=== PATIENT | female | born 1970 | race Caucasian/White ===

== ENCOUNTER 2017-08-06 16:19 | Observation (INO) ==
[2017-08-06] MEDS ORDERED: Ondansetron ODT 4 MG TAB.RAPDIS SL ONE (17:40)
--- NOTE | 2017-08-06 17:41 | Emergency Department Note ---
Disposition Clinical Impression: Pyelonephritis Nausea & vomiting Qualifiers: Vomiting type: unspecified Vomiting Intractability: intractable Qualified Code( s): R11.2 - Nausea with vomiting, unspecified Disposition: Admitted As Inpatient Condition: Fair General Adult HPI - General Chief complaint: ED Nausea/Vomiting/Diarrhea Stated complaint: head/neck pain worse" Time Seen by Provider: 08/06/17 16:36 Source: patient Limitations: no limitations Nursing Notes Reviewed: Yes Vital Signs Reviewed: Yes - History of Present Illness HPI Narrative: 46-year-old female presents emergency department with concern for one-day history of fever, nausea, vomiting, left-sided flank pain, left lower quadrant abdominal pain with decreased urinary frequency. Patient states she has history of pyelonephritis. 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 Patient states that she is no longer having a headache. Patient denies any recent trauma. She localizes the tenderness to the paraspinal region on the left side. Patient denies any bowel or bladder incontinence, saddle anesthesia, IV drug abuse. Patient states that she has not been able to tolerate oral intake with her nausea vomiting. She stated she tried Zofran sublingual which normally helps her, but this did not help today. Pain Scale: 9 - Related Data Home Medications Medication Instructions Recorded Confirmed Ondansetron ODT [Zofran ODT] 8 mg SL Q6H PRN 10/15/14 08/29/15 Zolpidem Tartrate [Ambien] 10 mg PO DAILY PRN 10/15/14 08/29/15 Percocet 10-325 mg Tablet 09/26/15 Previous Rx's Medication Instructions Recorded Oxycodone HCl/Acetaminophen 1 each PO Q8HR PRN #6 tablet 10/21/15 [Percocet 5-325 mg Tablet] Ondansetron [Zofran ODT] 8 mg SL Q4HR PRN #20 tab 01/30/17 Ondansetron [Zofran ODT] 8 mg SL QID #10 tab.rapdis 02/13/17 Ondansetron ODT [Zofran ODT] 4 mg SL Q8HR PRN #12 tab.rapdis 08/05/17 Allergies Allergy/AdvReac Type Severity Reaction Status Date / Time diphenhydramine Allergy Hives Verified 08/05/17 18:48 [From Benadryl] ketorolac [From Toradol] Allergy Anaphylaxis Verified 08/05/17 18:48 metoclopramide [From Reglan] Allergy Dizziness Verified 08/05/17 18:48 prochlorperazine Allergy See Verified 08/05/17 18:48 [From Compazine] Comments Sulfa (Sulfonamide Allergy Vomiting Verified 08/05/17 18:48 Antibiotics) divalproex sodium AdvReac Anxiety Verified 08/05/17 18:48 [From Depakote] haloperidol [From Haldol] AdvReac Anxiety Verified 08/05/17 18:48 ketamine AdvReac Headache Verified 08/05/17 18:48 All systems ED: reviewed and negative except as stated. Review of Systems: As Per HPI Constitutional: Reports: fever Cardiovascular: Denies: chest pain Respiratory: Denies: cough, dyspnea Gastrointestinal: Reports: abdominal pain, nausea, vomiting, constipation Genitourinary: Reports: frequency (Decreased). 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 Absent: tenderness, meningismus - Chest Chest inspection: Present: normal inspection, symmetric chest wall rise - Respiratory Respiratory exam: Present: normal lung sounds bilaterally. Absent: respiratory distress - Cardiovascular Cardiovascular exam: Present: regular rate, normal rhythm, normal heart sounds - Abdominal Exam Abdominal exam: Present: soft, tenderness. Absent: guarding, rebound Abdominal tenderness: Present: LLQ, moderate - Back Exam Back exam: Present: full ROM, CVA tenderness (L), paraspinal tenderness (On the left). Absent: CVA tenderness (R) - Neurological Exam Neurological exam: Present: alert, oriented X3, CN II-XII intact - Psychiatric Psychiatric exam: Present: normal affect, normal mood - Skin Skin exam: Present: warm, dry, intact, normal color. Absent: rash Course Vital Signs Temperature 98.6 F 08/06/17 16:31 Pulse Rate 82 08/06/17 16:31 Respiratory Rate 18 08/06/17 16:31 Blood Pressure 142/94 08/06/17 16:31 O2 Sat by Pulse Oximetry 100 08/06/17 16:31 Temperature 98.6 F 08/06/17 16:31 Pulse Rate 67 08/06/17 18:16 Respiratory Rate 20 08/06/17 21:26 Blood Pressure 134/89 08/06/17 21:26 O2 Sat by Pulse Oximetry 100 08/06/17 18:16 Oxygen Delivery Oxygen Delivery Room Air Medical Decision Making - MDM Narrative Medical decision making narrative: 46-year-old female presents emergency department with concern for left CVA tenderness, left lower quadrant abdominal pain, with nausea vomiting, reported fever, and decreased urinary frequency. We will obtain CT scan of abdomen and pelvis to rule out obstructive stone as patient has had history of this in the past. CT scan of abdomen and pelvis does not reveal any acute abnormality. We obtain a urinalysis which revealed positive nitrites, mild leukocyte esterase. The symptoms of CVA tenderness, left lower quadrant rebound tenderness on physical exam with the urinalysis findings, suspect a pyelonephritis. Patient also had a leukocytosis of 15.7. Patient had normal renal function. Patient was unable to tolerate oral intake here in the emergency department after he gave sublingual Zofran. She vomited multiple times. We placed IV and gave patient a liter of fluids as well as IV Zofran. Patient was also given medication for pain as well. We also administered 2 g Rocephin IV. Discussed admission with the patient at bedside and she agreed with plan. Patient was admitted to the hospitalist. Patient hemodynamically stable and not in any acute distress at time of admission to the hospital. Patient reported that the IV Zofran helped with her nausea. Vital Signs Temperature 98.6 F 08/06/17 16:31 Pulse Rate 82 08/06/17 16:31 Respiratory Rate 18 08/06/17 16:31 Blood Pressure 142/94 08/06/17 16:31 O2 Sat by Pulse Oximetry 100 08/06/17 16:31 Temperature 98.6 F 08/06/17 16:31 Pulse Rate 67 08/06/17 18:16 Respiratory Rate 20 08/06/17 21:26 Blood Pressure 134/89 08/06/17 21:26 O2 Sat by Pulse Oximetry 100 08/06/17 18:16 Oxygen Delivery Oxygen Delivery Room Air Abdomen/Pelvis CT 08/06/17 17:39 IMPRESSION: 1. No acute abnormality in the abdomen/pelvis. 2. Small pelvic free fluid, which is most likely physiologic. D/ / Rudy Charlton MD / Rudy Charlton MD Interpreting Provider: Rudy Charlton MD - Lab Data Result diagrams: 08/06/17 18:00 08/06/17 18:00 Lab Results 08/06/17 08/06/17 08/06/17 Range/Units 16:05 18:00 18:00 WBC 15.7 H D (4.3-11.1) K/mcL RBC 4.97 (3.82-4.97) M/mcL Hgb 15.4 D (11.5-15.4) g/dL Hct 44.0 (35.3-44.9) % MCV 88.5 (83.0-100.0) fL MCH 31.0 (28.0-33.3) pg MCHC 35.0 (31.6-35.5) g/dL RDW 12.4 (11.5-14.5) % Plt Count 353 (140-400) K/mcL MPV 9.3 L (9.4-12.4) fL Immature Gran % 0.4 (0-4) % Seg Neutrophils % 81.0 % Lymphocytes % 12.2 % Monocytes % 6.3 % Eosinophils % 0.0 % Basophils % 0.1 % Neutrophils # 12.7 H (1.6-8.9) K/mcL Lymphocytes # 1.9 (0.6-4.6) K/mcL Monocytes # 1.0 (0.0-1.3) K/mcL Eosinophils # 0.0 (0.0-0.6) K/mcL Basophils # 0.0 (0.0-0.2) K/mcL Sodium 138 (136-145) mEq/L Potassium 3.6 (3.5-5.1) mEq/L Chloride 105 (98-107) mEq/L Carbon Dioxide 22 L (23-29) mEq/L BUN 14 (6-20) mg/dL Creatinine 0.72 (0.60-1.20) mg/dL Est GFR ( Amer) > 60 (> 60) Est GFR (Non-Af Amer) > 60 (> 60) BUN/Creatinine Ratio 19 (6-26) Glucose 90 (70-105) mg/dL Calculated Osmolality 286 (280-300) Calcium 9.9 (8.6-10.3) mg/dL Total Bilirubin 0.7 (0.3-1.0) mg/dL AST 10 L (13-39) Units/L ALT 10 (7-52) Units/L Alkaline Phosphatase 76 (34-104) Units/L Serum Total Protein 7.4 (6.4-8.9) g/dL Albumin 4.8 (3.5-5.7) g/dL Globulin 2.6 (2.4-3.5) g/dL Albumin/Globulin Ratio 1.8 (1.1-2.2) Urine Color Yellow (Yellow) Urine Clarity Cloudy A (Clear) Urine pH 6.0 (5.0-8.0) pH Units Ur Specific [place] 1.015 (1.010-1.025) Urine Protein Negative (Neg-Trace) mg/dL Urine Glucose (UA) Normal (Normal) mg/dL Urine Ketones Negative (Negative) mg/dL Urine Blood Negative (Negative) Urine Nitrite Positive A (Negative) Urine Bilirubin Negative (Negative) Urine Urobilinogen Normal (Normal) mg/dL Ur Leukocyte Esterase Small H (Negative) Urine Microscopic RBC 0-3 (0-3) per hpf Urine Microscopic WBC 15-30 H (0-3) per hpf Ur Squamous Epith Cells Many H (None-Few) per lpf Urine Bacteria Many H (None-Few) per hpf Hyaline Casts None Seen (None-Few) per lpf Ur Culture Indicated? NO. A (NO)
[2017-08-06 18:11] LABS: Basophils % 0.1 %; Immature Granulocytes % 0.4 % (0-4); Lymphocytes # 1.9 K/mcL (0.6-4.6); Lymphocytes % 12.2 %; Mean Corpuscular Volume 88.5 fL (83.0-100.0); Mean Platelet Volume 9.3 fL (9.4-12.4); Monocytes % 6.3 %; Neutrophils # 12.7 K/mcL (1.6-8.9); Platelet Count 353 K/mcL (140-400); Red Blood Count 4.97 M/mcL (3.82-4.97); Red Cell Distribution Width 12.4 % (11.5-14.5)
[2017-08-06 18:16] LABS: Bilirubin,Urine Negative (Negative); Blood,Urine Negative (Negative); Clarity,Urine Cloudy (Clear); Color,Urine Yellow (Yellow); Glucose,Urine (UA) Normal (Normal); Ketones,Urine Negative (Negative); Leukocyte Esterase,Urine Small (Negative); Nitrite,Urine Positive (Negative); Protein,Urine Negative (Neg-Trace); Specific Gravity,Urine 1.015 (1.010-1.025); Urobilinogen,Urine Normal (Normal)
[2017-08-06 18:18] LABS: Bacteria,Urine Many per hpf (None-Few); Hyaline Casts,Urine None Seen per lpf (None-Few); RBC,Urine 0-3 per hpf (0-3); Squamous Epithelial Cell,Urine Many per lpf (None-Few); WBC,Urine 15-30 per hpf (0-3)
[2017-08-06 18:30] LABS: Alanine Aminotransferase 10 Units/L (7-52); Albumin 4.8 g/dL (3.5-5.7); Albumin/Globulin Ratio 1.8 (1.1-2.2); Alkaline Phosphatase 76 Units/L (34-104); Aspartate Amino Transferase 10 Units/L (13-39); BUN/Creatinine Ratio 19 (6-26); Bilirubin,Total 0.7 mg/dL (0.3-1.0); Blood Urea Nitrogen 14 mg/dL (6-20); Calcium 9.9 mg/dL (8.6-10.3); Carbon Dioxide 22 mEq/L (23-29); Chloride 105 mEq/L (98-107); Globulin 2.6 g/dL (2.4-3.5); Glucose 90 mg/dL (70-105); Osmolality,Calculated 286 (280-300); Potassium 3.6 mEq/L (3.5-5.1); Sodium 138 mEq/L (136-145); Total Protein 7.4 g/dL (6.4-8.9); eGFR For African Americans > 60 (> 60); eGFR For Non-African Americans > 60 (> 60)
[2017-08-06 18:54] LABS: Hemoglobin 15.4 g/dL (11.5-15.4)
[2017-08-06] MEDS ORDERED: cefTRIAXone 2,000 MG in Water for inj. (sterile) 20 ML 20 ML IVP ONE (19:09)
[2017-08-06] MEDS ORDERED: 0.9 % Sodium Chloride 1,000 ML IVC ONE (19:15)
--- NOTE | 2017-08-06 19:39 | Emergency Department Note ---
Disposition Clinical Impression: Pyelonephritis, Nausea & vomiting Disposition: Admitted As Inpatient Condition: Fair General Adult HPI - General Chief complaint: ED Nausea/Vomiting/Diarrhea Stated complaint: head/neck pain worse" Time Seen by Provider: 08/06/17 16:36 Source: patient Limitations: no limitations - History of Present Illness Pain Scale: 6 - Related Data Home Medications Medication Instructions Recorded Confirmed Ondansetron ODT [Zofran ODT] 8 mg SL Q6H PRN 10/15/14 08/29/15 Zolpidem Tartrate [Ambien] 10 mg PO DAILY PRN 10/15/14 08/06/17 Percocet 10-325 mg Tablet 09/26/15 Previous Rx's Medication Instructions Recorded Oxycodone HCl/Acetaminophen 1 each PO Q8HR PRN #6 tablet 10/21/15 [Percocet 5-325 mg Tablet] Ondansetron [Zofran ODT] 8 mg SL Q4HR PRN #20 tab 01/30/17 Ondansetron [Zofran ODT] 8 mg SL QID #10 tab.rapdis 02/13/17 Ondansetron ODT [Zofran ODT] 4 mg SL Q8HR PRN #12 tab.rapdis 08/05/17 Allergies Allergy/AdvReac Type Severity Reaction Status Date / Time diphenhydramine Allergy Hives Verified 08/05/17 18:48 [From Benadryl] ketorolac [From Toradol] Allergy Anaphylaxis Verified 08/05/17 18:48 metoclopramide [From Reglan] Allergy Dizziness Verified 08/05/17 18:48 prochlorperazine Allergy See Verified 08/05/17 18:48 [From Compazine] Comments Sulfa (Sulfonamide Allergy Vomiting Verified 08/05/17 18:48 Antibiotics) divalproex sodium AdvReac Anxiety Verified 08/05/17 18:48 [From Depakote] haloperidol [From Haldol] AdvReac Anxiety Verified 08/05/17 18:48 ketamine AdvReac Headache Verified 08/05/17 18:48 Past Medical History - Past Medical History Medical history: Reports: hypertension, thyroid disease, migraine, kidney stones , DVT Surgical history: Reports: appendectomy, hysterectomy, other Psychiatric history: Reports: no psych history 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, bilateral tubal ligation - Social History Smoking Status: Never smoker Smokeless Tobacco Status: No Alcohol use: Reports: none Drug use: Reports: none Physical Exam - General Limitations: no limitations General appearance: alert Course Vital Signs Temperature 98.6 F 08/06/17 16:31 Pulse Rate 82 08/06/17 16:31 Respiratory Rate 18 08/06/17 16:31 Blood Pressure 142/94 08/06/17 16:31 O2 Sat by Pulse Oximetry 100 08/06/17 16:31 Temperature 98.6 F 08/06/17 16:31 Pulse Rate 67 08/06/17 18:16 Respiratory Rate 20 08/06/17 21:26 Blood Pressure 134/89 08/06/17 21:26 O2 Sat by Pulse Oximetry 100 08/06/17 18:16 Oxygen Delivery Oxygen Delivery Room Air Medical Decision Making - Lab Data Result diagrams: 08/06/17 18:00 08/06/17 18:00 Lab Results 08/06/17 08/06/17 08/06/17 Range/Units 16:05 18:00 18:00 WBC 15.7 H D (4.3-11.1) K/mcL RBC 4.97 (3.82-4.97) M/mcL Hgb 15.4 D (11.5-15.4) g/dL Hct 44.0 (35.3-44.9) % MCV 88.5 (83.0-100.0) fL MCH 31.0 (28.0-33.3) pg MCHC 35.0 (31.6-35.5) g/dL RDW 12.4 (11.5-14.5) % Plt Count 353 (140-400) K/mcL MPV 9.3 L (9.4-12.4) fL Immature Gran % 0.4 (0-4) % Seg Neutrophils % 81.0 % Lymphocytes % 12.2 % Monocytes % 6.3 % Eosinophils % 0.0 % Basophils % 0.1 % Neutrophils # 12.7 H (1.6-8.9) K/mcL Lymphocytes # 1.9 (0.6-4.6) K/mcL Monocytes # 1.0 (0.0-1.3) K/mcL Eosinophils # 0.0 (0.0-0.6) K/mcL Basophils # 0.0 (0.0-0.2) K/mcL Sodium 138 (136-145) mEq/L Potassium 3.6 (3.5-5.1) mEq/L Chloride 105 (98-107) mEq/L Carbon Dioxide 22 L (23-29) mEq/L BUN 14 (6-20) mg/dL Creatinine 0.72 (0.60-1.20) mg/dL Est GFR ( Amer) > 60 (> 60) Est GFR (Non-Af Amer) > 60 (> 60) BUN/Creatinine Ratio 19 (6-26) Glucose 90 (70-105) mg/dL Calculated Osmolality 286 (280-300) Calcium 9.9 (8.6-10.3) mg/dL Total Bilirubin 0.7 (0.3-1.0) mg/dL AST 10 L (13-39) Units/L ALT 10 (7-52) Units/L Alkaline Phosphatase 76 (34-104) Units/L Serum Total Protein 7.4 (6.4-8.9) g/dL Albumin 4.8 (3.5-5.7) g/dL Globulin 2.6 (2.4-3.5) g/dL Albumin/Globulin Ratio 1.8 (1.1-2.2) Urine Color Yellow (Yellow) Urine Clarity Cloudy A (Clear) Urine pH 6.0 (5.0-8.0) pH Units Ur Specific [place] 1.015 (1.010-1.025) Urine Protein Negative (Neg-Trace) mg/dL Urine Glucose (UA) Normal (Normal) mg/dL Urine Ketones Negative (Negative) mg/dL Urine Blood Negative (Negative) Urine Nitrite Positive A (Negative) Urine Bilirubin Negative (Negative) Urine Urobilinogen Normal (Normal) mg/dL Ur Leukocyte Esterase Small H (Negative) Urine Microscopic RBC 0-3 (0-3) per hpf Urine Microscopic WBC 15-30 H (0-3) per hpf Ur Squamous Epith Cells Many H (None-Few) per lpf Urine Bacteria Many H (None-Few) per hpf Hyaline Casts None Seen (None-Few) per lpf Ur Culture Indicated? NO. A (NO) Attestation Statement - Attestation Attestation: I examined this patient and my medical decision-making was reviewed with the Resident Physician, Dr. Canales. I agree with the documented findings, disposition and treatment plan as described except to the extent set forth below. Patient is a 46-year-old white female who I personally evaluated and cared for last night in the emergency department for migraine headache. She returns tonight with complaints of subjective fevers and chills, urinary urgency and frequency, suprapubic abdominal pain as well as right flank pain with a prior history of kidney stones and ongoing nausea and vomiting. Patient states her headache has not returns stopping complaining of any head or neck pain we did a CT can of her head and shunt night's was all unremarkable. Patient concerned that she has had prior UTIs in the past as well as kidney stones and came in for evaluation. She is status post hysterectomy as well as appendectomy. Patient's hemodynamically stable and in no acute distress on arrival. I agree with patient's physical exam findings as documented. We attempted sublingual medications which patient had difficulty tolerating ODT Zofran. We will go ahead and proceed with a line fluids and medications IV. Laboratory evaluation shows a leukocytosis with left shift and urinalysis consistent with urinary tract infection. CT scan was negative for any Acute kidney stones or ureterolithiasis at this time and no obvious [place]. Symptoms concerning for ascending UTI versus acute early acute [place] and patient able tolerate by mouth at this time. Patient will be admitted to the hospitalist service for continued evaluation and management.
[2017-08-06] MEDS ORDERED: Ondansetron 4 MG/2 ML VIAL IVP ONE (19:45)
[2017-08-06] MEDS ORDERED: Ondansetron 4 MG/2 ML VIAL ONE (20:03)
[2017-08-06] MEDS ORDERED: Naloxone 0.4 MG/ML INJ IVP PRN (20:30)
[2017-08-06] MEDS ORDERED: Acetaminophen 325 MG TABLET PO PRN (20:30)
[2017-08-06] MEDS ORDERED: *HR* OxyCODONE/APAP 5/325 TABLET PO ONE (20:32)
--- NOTE | 2017-08-06 20:38 | Internal Med History&Physical ---
Date of Encounter: 08/06/17 Time of Encounter: 20:33 Internal Medicine - H&P: HPI Chief complaint: Urinary symptoms Admitted From: Emergency Dept Plans for Post Hospital Care: Home History of present illness: Ms. 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 The patient was evaluated in the ED yesterday with migraine headache and was treated and was discharged with no issues. She comes back today complaining of urinary symptoms including suprapubic and right flank pain as well as urinary urgency and frequency with associated fevers and chills. Fever as high as 101.5. This started yesterday. She has been nauseated and has been vomiting as well. In the ED she was noted to have leukocytosis as well as a UA that indicative for UTI. She was given ceftriaxone in the ED as well as antiemetics. She was tried on oral antiemetics however she vomited. This is the reason she skinned admitted that she could not tolerate by mouth. Otherwise the patient was hemodynamically stable in the ED. She was afebrile. A CT abdomen and pelvis was done which showed no acute abnormalities. She says she is continues to have a headache however this improved compared to yesterday. Denies any blurry vision, chest pain, shortness of breath, diarrhea, constipation, or neurological symptoms. Past Med Surg Social Fam HX - Past Medical History Medical history: hypertension, thyroid disease, migraine, kidney stones, DVT Additional medical history: spinal menengitis Psychiatric history: no psych history - Past Surgical History Surgical History: appendectomy, hysterectomy, other Additional surgical history: WINDOWS SOFTWARE DEVELOPER Shunt, left facial reconstruction - Social History Smoking Status: Never smoker Smokeless Tobacco Status: No Alcohol use: none Drug use: none Internal Medicine - H&P: Meds Zolpidem Tartrate [Ambien] 10 mg PO DAILY PRN 10/15/14 [History] Percocet 10-325 mg Tablet 1 tab PO Q6HR MDD 4 09/26/15 [History] Ondansetron [Zofran ODT] 8 mg SL TID 08/06/17 [History] 3 Allergy/AdvReac Type Severity Reaction Status Date / Time diphenhydramine Allergy Hives Verified 08/05/17 18:48 [From Benadryl] ketorolac [From Toradol] Allergy Anaphylaxis Verified 08/05/17 18:48 metoclopramide [From Reglan] Allergy Dizziness Verified 08/05/17 18:48 prochlorperazine Allergy See Verified 08/05/17 18:48 [From Compazine] Comments Sulfa (Sulfonamide Allergy Vomiting Verified 08/05/17 18:48 Antibiotics) divalproex sodium AdvReac Anxiety Verified 08/05/17 18:48 [From Depakote] haloperidol [From Haldol] AdvReac Anxiety Verified 08/05/17 18:48 ketamine AdvReac Headache Verified 08/05/17 18:48 All Systems PM: A 10-system review of systems was performed and is negative for pertinent findings except as documented above in the HPI. Review of systems: All systems reviewed are negative except as mentioned above - Constitutional Vitals: Temp Pulse Resp BP Pulse Ox 98.6 F 67 18 134/89 100 08/06/17 16:31 08/06/17 18:16 08/06/17 16:31 08/06/17 18:16 08/06/17 18:16 Exam: GEN: NAD HEENT: AT, NC, No cyanosis, oral mucosa is moist, No JVD Lymphatics: No lymphadenoapthy Eyes: Extrocular muscles intact, anicteric CVS:RRR. S1, S2, No m/r/g RESP: CTAB ABD: Soft, suprapubic tenderness., ND, +BS EXT: No edema, No rashes, 2+ DP NEURO: Nonfocal, CN II-XII intact, No focal motor or sensory deficits Psych: Cooperative, Not anxious or depressed Internal Med - H&P Results - Labs CBC & Chem 7: 08/06/17 18:00 08/06/17 18:00 - Assessment and plan (1) UTI (urinary tract infection) Current Visit: Yes Status: Acute Assessment and plan: We will place patient on ceftriaxone and IV fluids. Follow up on cultures. Qualifiers: Urinary tract infection type: site unspecified Hematuria presence: without hematuria Qualified Code(s): N39.0 - Urinary tract infection, site not specified (2) Nausea and vomiting Current Visit: Yes Status: Acute Assessment and plan: Likely secondary to the UTI. We will treat conservatively with IV fluids and antiemetics. Diet as tolerated. Qualifiers: Vomiting type: unspecified Vomiting Intractability: intractable Qualified Code(s): R11.2 - Nausea with vomiting, unspecified (3) DVT prophylaxis Current Visit: Yes Status: Acute Assessment and plan: Heparin subcutaneous - Time Spent With Patient Total time spent is greater than 50% in coordination of care (as documented) at patient's floor/unit and/or counseling patient:
[2017-08-06] MEDS ORDERED: Ketorolac 30 MG/ML VIAL IVP PRN (21:50)
[2017-08-06] MEDS ORDERED: *HR* Heparin 5,000 UNIT/ML VIAL SQ SCH (22:00)
[2017-08-06] MEDS: *HR* Heparin 5,000 UNIT/ML VIAL SQ SCH (22:30)
[2017-08-06] MEDS: 0.9 % Sodium Chloride 1,000 ML IVC SCH (22:42)
[2017-08-07] MEDS: *HR* OxyCODONE/APAP 10/325 TABLET PO PRN ×4 (02:55→21:19)
[2017-08-07] MEDS: Ondansetron 4 MG/2 ML VIAL IVP PRN ×4 (02:55→21:24)
[2017-08-07] MEDS: 0.9 % Sodium Chloride 1,000 ML IVC SCH ×3 (06:17→22:47)
[2017-08-07] MEDS: *HR* Heparin 5,000 UNIT/ML VIAL SQ SCH ×3 (06:17→21:26)
[2017-08-07 07:04] LABS: Basophils % 0.3 %; Eosinophils # 0.1 K/mcL (0.0-0.6); Eosinophils % 0.6 %; Hematocrit 37.6 % (35.3-44.9); Immature Granulocytes % 0.3 % (0-4); Lymphocytes # 2.9 K/mcL (0.6-4.6); Lymphocytes % 29.3 %; Mean Corpuscular HGB Conc 34.3 g/dL (31.6-35.5); Mean Corpuscular Hemoglobin 30.1 pg (28.0-33.3); Mean Corpuscular Volume 87.6 fL (83.0-100.0); Mean Platelet Volume 9.4 fL (9.4-12.4); Monocytes % 10.1 %; Neutrophils # 5.9 K/mcL (1.6-8.9); Platelet Count 286 K/mcL (140-400); Red Blood Count 4.29 M/mcL (3.82-4.97); Red Cell Distribution Width 12.8 % (11.5-14.5); Segmented Neutrophils % 59.4 %
[2017-08-07 07:13] LABS: BUN/Creatinine Ratio 21 (6-26); Blood Urea Nitrogen 16 mg/dL (6-20); Calcium 8.5 mg/dL (8.6-10.3); Carbon Dioxide 22 mEq/L (23-29); Chloride 110 mEq/L (98-107); Glucose 106 mg/dL (70-105); Magnesium 2.1 mg/dL (1.6-2.6); Osmolality,Calculated 288 (280-300); Potassium 3.5 mEq/L (3.5-5.1); Sodium 138 mEq/L (136-145); eGFR For African Americans > 60 (> 60); eGFR For Non-African Americans > 60 (> 60)
[2017-08-07 07:16] LABS: Hemoglobin 12.9 g/dL (11.5-15.4)
[2017-08-07] MEDS: cefTRIAXone 1,000 MG in Water for inj. (sterile) 20 ML 10 ML IVP SCH (07:47)
--- NOTE | 2017-08-07 13:37 | Internal Med Progress Note ---
Date of Encounter: 08/07/17 Time of Encounter: 13:34 - Assessment and plan (1) Pyelonephritis Current Visit: Yes Status: Acute Assessment and plan: Clinically acute pyelonephritis. Not visible on the CAT scan but the CAT scan was also done without contrast. I would continue IV antibiotics for now and follow cultures. Would need at least 10-14 days of antibiotics upon discharge. (2) UTI (urinary tract infection) Current Visit: Yes Status: Acute Assessment and plan: At this point the patient has clinical acute pyelonephritis of infectious etiology. She has had multiple urinary tract infections over the last few years with Escherichia coli always been Sensitive to Rocephin Hence We Will Continue Rocephin for Now and Await Further Cultures and Speciation, given multiple urinary tract infections she would merit an evaluation from a urological standpoint for anatomical abnormalities. The scan head did not show any evidence of stones. Qualifiers: Urinary tract infection type: site unspecified Hematuria presence: without hematuria Qualified Code(s): N39.0 - Urinary tract infection, site not specified (3) Nausea and vomiting Current Visit: Yes Status: Acute Assessment and plan: Likely secondary to the UTI. We will treat conservatively with IV fluids and antiemetics. Diet as tolerated. 08/07/2017-slowly improving. Continue when necessary antinausea medications and and slowly advance her diet Qualifiers: Vomiting type: unspecified Vomiting Intractability: intractable Qualified Code(s): R11.2 - Nausea with vomiting, unspecified (4) DVT prophylaxis Current Visit: Yes Status: Acute Assessment and plan: Heparin subcutaneous - Time Spent With Patient Total time spent is greater than 50% in coordination of care (as documented) at patient's floor/unit and/or counseling patient: 25 - 35 minutes - Subjective Interval history: Patient continues to complain of right-sided abdominal pain which radiates all the way down to her back and is rated at a scale of 8/10 which does improve with by mouth opiates. She denies any fever or chills at this point. She is not really had any urological workup done as an outpatient and she is not really sure why she keeps having urinary tract infections [id number]. - Constitutional Vitals: Temp Pulse Resp BP Pulse Ox 98.2 F 66 16 130/93 97 08/07/17 11:07 08/07/17 11:07 08/07/17 11:07 08/07/17 11:07 08/07/17 11:07 Exam: GENERAL: Alert, moderate discomfort cooperative EYES: PERRLA, EOMI EARS: External ears normal, canals clear OROPHARYNX: Lips, mucosa, and tongue normal. Teeth and gums normal. Oropharynx normal. NECK: No jugulovenous distention, No carotid bruits, Carotid pulse normal contour, Supple LUNGS: Lungs clear to auscultation, Good diaphragmatic excursion CARDIAC: Normal S1 and S2; no rubs, murmurs, or gallops Back-positive for CVA tenderness and the right costovertebral angle Internal Medicine: Result - Labs CBC & Chem 7: 08/07/17 06:23 08/07/17 06:23 Labs: Short CBC 08/07/17 Range/Units 06:23 WBC 9.9 (4.3-11.1) K/mcL Hgb 12.9 D (11.5-15.4) g/dL Hct 37.6 (35.3-44.9) % Plt Count 286 (140-400) K/mcL Neutrophils # 5.9 (1.6-8.9) K/mcL BMP 08/07/17 06:23 Sodium 138 Potassium 3.5 Chloride 110 H Carbon Dioxide 22 L BUN 16 Creatinine 0.78 Glucose 106 H Calcium 8.5 L Consult Discharge Plan - Plan Referrals: Yogesh Markham MD [Primary Care Provider] -
[2017-08-07] MEDS ORDERED: Ketorolac 30 MG/ML VIAL IVP PRN (14:00)
[2017-08-08] MEDS: *HR* OxyCODONE/APAP 10/325 TABLET PO PRN ×2 (03:23→09:49)
[2017-08-08] MEDS: Ondansetron 4 MG/2 ML VIAL IVP PRN ×2 (03:24→09:49)
[2017-08-08] MEDS: *HR* Heparin 5,000 UNIT/ML VIAL SQ SCH (06:17)
[2017-08-08] MEDS: 0.9 % Sodium Chloride 1,000 ML IVC SCH (06:32)
[2017-08-08 07:26] VITALS: BP 130/85
[2017-08-08] MEDS: cefTRIAXone 1,000 MG in Water for inj. (sterile) 20 ML 10 ML IVP SCH (07:54)
--- NOTE | 2017-08-08 10:06 | Discharge Summary ---
- NOTES TO OUTPATIENT PROVIDER Notes to Outpatient Provider: Patient has been admitted and treated for clinical pyelonephritis. Patient has had multiple Escherichia coli urinary tract infections over the last couple of years and would merit seeing a outpatient urologist. Please consider arranging outpatient urology workup for this patient. At this point she will need 11 more days of Omnicef and premedication with Zofran which the patient already has at home. Date of Encounter: 08/08/17 Time of Encounter: 10:06 - Discharge Diagnosis (1) Pyelonephritis Priority: Primary Status: Acute (2) UTI (urinary tract infection) Priority: Secondary Status: Acute Qualifiers: Urinary tract infection type: site unspecified Hematuria presence: without hematuria Qualified Code(s): N39.0 - Urinary tract infection, site not specified (3) Nausea and vomiting Priority: Secondary Status: Acute Qualifiers: Vomiting type: unspecified Vomiting Intractability: intractable Qualified Code(s): R11.2 - Nausea with vomiting, unspecified (4) DVT prophylaxis Priority: Secondary Status: Acute Hospital course: Ms. Katz is a 46 year old female who has been admitted with clinical acute pyelonephritis. Patient has had multiple UTIs with Escherichia coli in the past SENSITIVE TO CEPHALOSPORINS. SHE IS CLINICALLY TODAY BETTER ON DAY 3 OF IV ROCEPHIN AND I HAVE DECIDED TO SWITCH HER TO ORAL OMNICEF 300 MG BY MOUTH TWICE A DAY FOR A TOTAL OF 11 MORE DAYS TO COMPLETE A 14 DAY COURSE. SHE HAS IMPROVEMENT OF HER NAUSEA AT THIS POINT AND WILL NEED TO CONTINUE WHEN NECESSARY ZOFRAN PRIOR TO ANTIBIOTICS. I WILL ALSO ASKED HER TO TAKE IT EASY ON HER DIET AND USE MORE PROBIOTICS AND YOGURT WITH ANTIBIOTICS OVER THE NEXT SEVERAL DAYS. SHE WILL MERIT EVALUATION FROM UROLOGY STANDPOINT GIVEN HER MULTIPLE RECURRENT UTIS WITH ESCHERICHIA COLI Discharge discussed with: patient, nurse - Time Spent with Patient Total time spent providing and/or coordinating discharge services: Greater than 30 minutes - Discharge Medications Home Medications: Ondansetron [Zofran ODT] 8 mg SL TID 08/06/17 [History] Albuterol Sulfate [Ventolin Hfa] 2 puff IH Q4-6H PRN 08/07/17 [History] EPINEPHrine [Epipen] 0.3 mg IM ONCE PRN 08/07/17 [History] Omeprazole [PriLOSEC] 40 mg PO DAILY 08/07/17 [History] Oxycodone HCl/Acetaminophen [Percocet 10-325 mg Tablet] 1 tab PO Q6H PRN [History] Acetaminophen [Tylenol] 650 mg PO Q6HR PRN tablet 08/08/17 [Rx] Cefdinir [Omnicef] 300 mg PO BID 11 Days #22 capsule 08/08/17 [Rx] Allergies/Adverse Reactions: 3 Allergy/AdvReac Type Severity Reaction Status Date / Time diphenhydramine Allergy Hives Verified 08/05/17 18:48 [From Benadryl] ketorolac [From Toradol] Allergy Anaphylaxis Verified 08/05/17 18:48 metoclopramide [From Reglan] Allergy Dizziness Verified 08/05/17 18:48 prochlorperazine Allergy See Verified 08/05/17 18:48 [From Compazine] Comments Sulfa (Sulfonamide Allergy Vomiting Verified 08/05/17 18:48 Antibiotics) divalproex sodium AdvReac Anxiety Verified 08/05/17 18:48 [From Depakote] haloperidol [From Haldol] AdvReac Anxiety Verified 08/05/17 18:48 ketamine AdvReac Headache Verified 08/05/17 18:48 Date of admission: 08/06/17 20:19 Primary care physician: Yogesh Markham MD - Constitutional Vitals: Temp Pulse Resp BP Pulse Ox 98.0 F 63 12 130/85 98 08/08/17 07:25 08/08/17 07:25 08/08/17 07:25 08/08/17 07:25 08/08/17 07:25 Exam: GENERAL: Alert, no distress, cooperative EYES: PERRLA, EOMI EARS: External ears normal, canals clear OROPHARYNX: Lips, mucosa, and tongue normal. Teeth and gums normal. Oropharynx normal. NECK: No jugulovenous distention, No carotid bruits, Carotid pulse normal contour, Supple LUNGS: Lungs clear to auscultation, Good diaphragmatic excursion CARDIAC: Normal S1 and S2; no rubs, murmurs, or gallops ABDOMEN: Abdomen soft, non-tender, BS normal, No masses or organomegaly EXTREMITIES: Extremities normal, no deformities, edema, clubbing or skin discoloration. Good capillary refill., No ulcers NEURO: Gait normal. Reflexes normal and symmetric. Sensation grossly intact, Cranial nerves II-XII intact PULSES: 2+ radial, 2+ carotid Rest of the exam is non contributory - Patient Status Disposition: Home, Self-Care Condition: Good Functional capacity at discharge: independent ambulation Overall status at discharge: patient is progressing back to baseline - Discharge Instructions Follow Up With: Yogesh Markham MD [Primary Care Provider] - - Diet and Activity Activity: resume usual activities as tolerated Diet: regular diet
== END 2017-08-08 10:37 | disposition home or self-care (01) ==
LOC: EMEROO 16:19 → 3ANU 16:19 → SUATTDRO 20:19 → 3ANU 21:56
PROVIDERS: ADMIT Internal Medicine; ATTEND Internal Medicine

== ENCOUNTER 2017-09-27 21:25 | Observation (INO) ==
[2017-09-27] MEDS ORDERED: Ondansetron 4 MG/2 ML VIAL IVP ONE (22:08)
[2017-09-27] MEDS ORDERED: 0.9 % Sodium Chloride 1,000 ML IVC ONE (22:08)
--- NOTE | 2017-09-27 22:11 | Emergency Department Note ---
Disposition Clinical Impression: Pyelonephritis Nausea & vomiting Qualifiers: Vomiting type: unspecified Vomiting Intractability: intractable Qualified Code( s): R11.2 - Nausea with vomiting, unspecified Disposition: Admitted As Inpatient Condition: Good Referrals: Yogesh Markham MD [Primary Care Provider] - Forms: ED Satisfaction Letter Time of Disposition: 04:06 Abdominal Pain HPI - General Chief Complaint: ED Urogenital-Female Stated Complaint: thinks she has a kidney infection Time Seen by Provider: 09/27/17 21:32 Source: patient Mode of arrival: ambulatory Limitations: no limitations Nursing Notes Reviewed: Yes Vital Signs Reviewed: Yes - History of Present Illness HPI Narrative: 46-year-old female presents emergency department with abdominal pain with nausea. She is concern for a kidney infection. She reports a history of recurrent of kidney infections states this feels similar to it. Over the past 48 hours she is been complaining of some nausea with vomiting as well as Christophe pain to the lower quadrants. It is sharp in nature and seems to radiate towards the right into the back. She has been taken Zofran at home with minimal relief. She states she has been unable to keep anything down for 2 days. She states she has not had any fevers or chills. She typically does not experienced any of these. She has not been able the urinate in the past several hours. She typically has urinary frequency when she develops his urinary tract infections. Her most recent admission was last month August 04. History of partial hysterectomy with one remaining ovary that she does not know on what side as well as appendectomy. She denies any alcohol use. Pain Scale: 8 - Related Data Home Medications Medication Instructions Recorded Confirmed Ondansetron [Zofran ODT] 8 mg SL TID 08/06/17 08/07/17 Albuterol Sulfate [Ventolin Hfa] 2 puff IH Q4-6H PRN 08/07/17 08/07/17 EPINEPHrine [Epipen] 0.3 mg IM ONCE PRN 08/07/17 08/07/17 Omeprazole [PriLOSEC] 40 mg PO DAILY 08/07/17 08/07/17 Oxycodone HCl/Acetaminophen 1 tab PO Q6H PRN 08/07/17 08/07/17 [Percocet 10-325 mg Tablet] Previous Rx's Medication Instructions Recorded Acetaminophen [Tylenol] 650 mg PO Q6HR PRN tablet 08/08/17 Cefdinir [Omnicef] 300 mg PO BID 11 Days #22 capsule 08/08/17 Allergies Allergy/AdvReac Type Severity Reaction Status Date / Time diphenhydramine Allergy Hives Verified 09/27/17 21:29 [From Benadryl] ketorolac [From Toradol] Allergy Anaphylaxis Verified 09/27/17 21:29 metoclopramide [From Reglan] Allergy Dizziness Verified 09/27/17 21:29 prochlorperazine Allergy See Verified 09/27/17 21:29 [From Compazine] Comments Sulfa (Sulfonamide Allergy Vomiting Verified 09/27/17 21:29 Antibiotics) divalproex sodium AdvReac Anxiety Verified 09/27/17 21:29 [From Depakote] haloperidol [From Haldol] AdvReac Anxiety Verified 09/27/17 21:29 ketamine AdvReac Headache Verified 09/27/17 21:29 All systems ED: reviewed and negative except as stated. Review of Systems: As Per HPI Constitutional: Denies: fever, chills Cardiovascular: Denies: chest pain Respiratory: Denies: dyspnea Gastrointestinal: Reports: abdominal pain, nausea, vomiting. Denies: diarrhea, melena, hematochezia Genitourinary: Reports: frequency. Denies: urgency, dysuria, hematuria Musculoskeletal: Denies: back pain Integumentary: Denies: rash, abrasion Abdominal Pain PMH - Past Medical History Medical history: Reports: DVT, hypertension, kidney stones, migraine, thyroid disease Female Surgical History: Reports: appendectomy, hysterectomy, other NIGHT SHIFT MANAGER history: Reports: no NIGHT SHIFT MANAGER history, bilateral tubal ligation Psychiatric history: Reports: no psych history - Social History Smoking status: Never smoker Alcohol use: Reports: none Drug use: Reports: none Physical Exam - General Limitations: no limitations General appearance: alert, in no apparent distress - Head Head exam: atraumatic, normocephalic, normal inspection - Eye Eye exam: Present: normal appearance, PERRL, EOMI - ENT ENT exam: normal exam, normal oropharynx, mucous membranes moist - Neck Neck exam: Present: normal inspection, full ROM, trachea midline - Chest Chest inspection: Present: normal inspection, symmetric chest wall rise - Respiratory Respiratory exam: Present: normal lung sounds bilaterally. Absent: respiratory distress, wheezes - Cardiovascular Cardiovascular exam: Present: regular rate, normal rhythm, normal heart sounds - Abdominal Exam Abdominal exam: Present: soft, tenderness, guarding (Voluntary), normal bowel sounds. Absent: distention, rebound, rigidity, Rovsing's sign, tenderness at McBurney's Point Abdominal tenderness: Present: diffuse - Extremities Exam Extremities exam: Present: normal inspection, full ROM, normal capillary refill. Absent: tenderness, pedal edema - Back Exam Back exam: Present: normal inspection, full ROM, CVA tenderness (R) (Mild), CVA tenderness (L) (Mild). Absent: tenderness - Neurological Exam Neurological exam: Present: alert, oriented X3 - Psychiatric Psychiatric exam: Present: normal affect, normal mood - Skin Skin exam: Present: warm, dry, intact, normal color. Absent: rash, cyanosis, diaphoresis Course Course Narrative: Patient presents with nausea vomiting abdominal pain flank pain. History is similar in the past with pyelonephritis. She states her most recent admission was over a month ago she initially was seen and evaluated in the discharged home requiring then we presentation to emergency department for admission for days. She has been taken Zofran at home with minimal relief of her nausea. She is typically unable to take antibiotics at home. Her vital signs here are stable. She is afebrile and slightly hypertensive. She states this is due to her pain. On physical exam she appears well hydrated. Her abdomen is diffusely tender. She does have bilateral CVA tenderness. Stasis similar to her follow nephritis in the past. At this time will check basic labs including a urinalysis to evaluate for any other abnormality including infection. Patients in agreement with this plan. Zofran for nausea and IV fluid hydration. - Reevaluation(s) Reevaluation #1: Patient continues to have persistent bilateral flank pain. Her urinalysis is not consistent with infection. However given her prior history of pyelonephritis will treat with Rocephin. CT of the abdomen and pelvis was ordered to evaluate for any intra-abdominal abnormality and was negative. At this time patient continues to have some intractable nausea vomiting despite multiple anti-emetic medications including Zofran and Phenergan. Given her prior history of similar presentation requiring admission I discussed the patient for admission and she is in agreement. Will continuous fluid hydration observation and treatment of her nausea. Her pain is better controlled after the fentanyl. Impression is nausea vomiting and possible early pyelonephritis. - Consultations Consultation #1: Spoke with on-call hospitalist augustine Valentine to admit for nausea vomiting and pyelonephritis. No further orders at this time Time: 04:07 Vital Signs Temperature 98.3 F 09/27/17 21:27 Pulse Rate 89 09/27/17 21:27 Respiratory Rate 20 09/27/17 21:27 Blood Pressure 152/95 09/27/17 21:27 O2 Sat by Pulse Oximetry 98 09/27/17 21:27 Temperature 98.3 F 09/27/17 21:27 Pulse Rate 60 09/28/17 02:49 Respiratory Rate 16 09/28/17 02:49 Blood Pressure 134/82 09/28/17 02:49 O2 Sat by Pulse Oximetry 99 09/28/17 02:49 Oxygen Delivery Oxygen Delivery Room Air Abdominal Pain - MDM Narrative Medical decision making narrative: Patient was discussed with my attending physician who agrees with ED management and final disposition. They independently evaluated the patient. Please refer to their attestation to this encounter for additional information. This note was generated by [employer] voice recognition software and as a result grammatical or spelling errors may occur using this program. - Medical Records Medical records reviewed: Yes I reviewed the patient's medical records. - Lab Data Lab results reviewed: Yes I reviewed the patient's lab results. Result diagrams: 09/27/17 22:57 09/27/17 22:57 Lab Results 09/27/17 09/27/17 09/27/17 Range/Units 22:57 22:57 23:45 WBC 10.1 (4.3-11.1) K/mcL RBC 4.86 (3.82-4.97) M/mcL Hgb 14.6 (11.5-15.4) g/dL Hct 43.0 (35.3-44.9) % MCV 88.5 (83.0-100.0) fL MCH 30.0 (28.0-33.3) pg MCHC 34.0 (31.6-35.5) g/dL RDW 13.6 (11.5-14.5) % Plt Count 315 (140-400) K/mcL MPV 9.1 L (9.4-12.4) fL Immature Gran % 0.2 (0-4) % Seg Neutrophils % 75.6 % Lymphocytes % 15.3 % Monocytes % 6.5 % Eosinophils % 2.1 % Basophils % 0.3 % Neutrophils # 7.6 (1.6-8.9) K/mcL Lymphocytes # 1.6 (0.6-4.6) K/mcL Monocytes # 0.7 (0.0-1.3) K/mcL Eosinophils # 0.2 (0.0-0.6) K/mcL Basophils # 0.0 (0.0-0.2) K/mcL Sodium 140 (136-145) mEq/L Potassium 3.9 (3.5-5.1) mEq/L Chloride 106 (98-107) mEq/L Carbon Dioxide 25 (23-29) mEq/L BUN 12 (6-20) mg/dL Creatinine 0.84 (0.60-1.20) mg/dL Est GFR ( Amer) > 60 (> 60) Est GFR (Non-Af Amer) > 60 (> 60) BUN/Creatinine Ratio 14 (6-26) Glucose 97 (70-105) mg/dL Calculated Osmolality 290 (280-300) Calcium 10.0 (8.6-10.3) mg/dL Lipase 7 L (11-82) Units/L Urine Color Yellow (Yellow) Urine Clarity Clear (Clear) Urine pH 5.5 (5.0-8.0) pH Units Ur Specific [place] 1.019 (1.010-1.025) Urine Protein Negative (Neg-Trace) mg/dL Urine Glucose (UA) Normal (Normal) mg/dL Urine Ketones Trace H (Negative) mg/dL Urine Blood Negative (Negative) Urine Nitrite Negative (Negative) Urine Bilirubin Negative (Negative) Urine Urobilinogen Normal (Normal) mg/dL Ur Leukocyte Esterase Small H (Negative) Urine Microscopic RBC 0-3 (0-3) per hpf Urine Microscopic WBC 5-15 H (0-3) per hpf Ur Squamous Epith Cells Many H (None-Few) per lpf Urine Bacteria None Seen (None-Few) per hpf Hyaline Casts None Seen (None-Few) per lpf Ur Culture Indicated? NO. A (NO) Urine Test (Negative) 09/27/17 Range/Units 23:45 WBC (4.3-11.1) K/mcL RBC (3.82-4.97) M/mcL Hgb (11.5-15.4) g/dL Hct (35.3-44.9) % MCV (83.0-100.0) fL MCH (28.0-33.3) pg MCHC (31.6-35.5) g/dL RDW (11.5-14.5) % Plt Count (140-400) K/mcL MPV (9.4-12.4) fL Immature Gran % (0-4) % Seg Neutrophils % % Lymphocytes % % Monocytes % % Eosinophils % % Basophils % % Neutrophils # (1.6-8.9) K/mcL Lymphocytes # (0.6-4.6) K/mcL Monocytes # (0.0-1.3) K/mcL Eosinophils # (0.0-0.6) K/mcL Basophils # (0.0-0.2) K/mcL Sodium (136-145) mEq/L Potassium (3.5-5.1) mEq/L Chloride (98-107) mEq/L Carbon Dioxide (23-29) mEq/L BUN (6-20) mg/dL Creatinine (0.60-1.20) mg/dL Est GFR ( Amer) (> 60) Est GFR (Non-Af Amer) (> 60) BUN/Creatinine Ratio (6-26) Glucose (70-105) mg/dL Calculated Osmolality (280-300) Calcium (8.6-10.3) mg/dL Lipase (11-82) Units/L Urine Color (Yellow) Urine Clarity (Clear) Urine pH (5.0-8.0) pH Units Ur Specific [place] (1.010-1.025) Urine Protein (Neg-Trace) mg/dL Urine Glucose (UA) (Normal) mg/dL Urine Ketones (Negative) mg/dL Urine Blood (Negative) Urine Nitrite (Negative) Urine Bilirubin (Negative) Urine Urobilinogen (Normal) mg/dL Ur Leukocyte Esterase (Negative) Urine Microscopic RBC (0-3) per hpf Urine Microscopic WBC (0-3) per hpf Ur Squamous Epith Cells (None-Few) per lpf Urine Bacteria (None-Few) per hpf Hyaline Casts (None-Few) per lpf Ur Culture Indicated? (NO) Urine Test Negative (Negative) - Radiology Data Radiology results reviewed: Yes I reviewed the patient's radiology results. Abdomen/Pelvis CT 09/28/17 01:38 IMPRESSION: No evidence for stone disease or other acute process. D/ / Zeferino Reeves MD / Zeferino Reeves MD Interpreting Provider: Zeferino Reeves MD
[2017-09-27 23:10] LABS: Basophils % 0.3 %; Eosinophils # 0.2 K/mcL (0.0-0.6); Eosinophils % 2.1 %; Hemoglobin 14.6 g/dL (11.5-15.4); Immature Granulocytes % 0.2 % (0-4); Lymphocytes # 1.6 K/mcL (0.6-4.6); Lymphocytes % 15.3 %; Mean Corpuscular Volume 88.5 fL (83.0-100.0); Mean Platelet Volume 9.1 fL (9.4-12.4); Monocytes # 0.7 K/mcL (0.0-1.3); Monocytes % 6.5 %; Neutrophils # 7.6 K/mcL (1.6-8.9); Platelet Count 315 K/mcL (140-400); Red Blood Count 4.86 M/mcL (3.82-4.97); Red Cell Distribution Width 13.6 % (11.5-14.5); Segmented Neutrophils % 75.6 %
[2017-09-27 23:27] LABS: BUN/Creatinine Ratio 14 (6-26); Blood Urea Nitrogen 12 mg/dL (6-20); Carbon Dioxide 25 mEq/L (23-29); Chloride 106 mEq/L (98-107); Glucose 97 mg/dL (70-105); Lipase 7 Units/L (11-82); Osmolality,Calculated 290 (280-300); Potassium 3.9 mEq/L (3.5-5.1); Sodium 140 mEq/L (136-145); eGFR For Non-African Americans > 60 (> 60)
[2017-09-27 23:59] LABS: Bilirubin,Urine Negative (Negative); Blood,Urine Negative (Negative); Clarity,Urine Clear (Clear); Color,Urine Yellow (Yellow); Glucose,Urine (UA) Normal (Normal); Ketones,Urine Trace mg/dL (Negative); Leukocyte Esterase,Urine Small (Negative); Nitrite,Urine Negative (Negative); PH,Urine 5.5 pH Units (5.0-8.0); Protein,Urine Negative (Neg-Trace); Specific Gravity,Urine 1.019 (1.010-1.025); Urobilinogen,Urine Normal (Normal)
[2017-09-28 00:02] LABS: Bacteria,Urine None Seen per hpf (None-Few); Hyaline Casts,Urine None Seen per lpf (None-Few); RBC,Urine 0-3 per hpf (0-3); Squamous Epithelial Cell,Urine Many per lpf (None-Few)
[2017-09-28] MEDS ORDERED: cefTRIAXone 1,000 MG in Water for inj. (sterile) 20 ML 10 ML IVP ONE (01:38)
--- NOTE | 2017-09-28 01:44 | Emergency Department Note ---
Disposition Clinical Impression: Nausea & vomiting, Pyelonephritis Disposition: Admitted As Inpatient Condition: Good General Adult HPI - General Chief complaint: ED Urogenital-Female Stated complaint: thinks she has a kidney infection Time Seen by Provider: 09/27/17 21:32 Source: patient Mode of arrival: ambulatory Limitations: no limitations - History of Present Illness Pain Scale: 9 - Related Data Home Medications Medication Instructions Recorded Confirmed Ondansetron [Zofran ODT] 8 mg SL TID 08/06/17 09/28/17 Albuterol Sulfate [Ventolin Hfa] 2 puff IH Q4-6H PRN 08/07/17 09/28/17 EPINEPHrine [Epipen] 0.3 mg IM ONCE PRN 08/07/17 09/28/17 Omeprazole [PriLOSEC] 40 mg PO DAILY 08/07/17 09/28/17 Oxycodone HCl/Acetaminophen 1 tab PO Q6H PRN 08/07/17 09/28/17 [Percocet 10-325 mg Tablet] Zolpidem [Ambien] 10 mg PO HS 09/28/17 09/28/17 Previous Rx's Medication Instructions Recorded Acetaminophen [Tylenol] 650 mg PO Q6HR PRN tablet 08/08/17 Promethazine [Phenergan] 25 mg PO Q8HR PRN #12 tablet 09/30/17 cephALEXin [Keflex] 500 mg PO BID #7 capsule 09/30/17 Allergies Allergy/AdvReac Type Severity Reaction Status Date / Time diphenhydramine Allergy Hives Verified 09/27/17 21:29 [From Benadryl] ketorolac [From Toradol] Allergy Anaphylaxis Verified 09/27/17 21:29 divalproex sodium AdvReac Anxiety Verified 09/27/17 21:29 [From Depakote] haloperidol [From Haldol] AdvReac Anxiety Verified 09/27/17 21:29 ketamine AdvReac Headache Verified 09/27/17 21:29 metoclopramide [From Reglan] AdvReac Dizziness Verified 09/28/17 10:05 prochlorperazine AdvReac Dizziness Verified 09/28/17 10:05 [From Compazine] Sulfa (Sulfonamide AdvReac Vomiting Verified 09/28/17 10:05 Antibiotics) Constitutional: Denies: fever, chills Cardiovascular: Denies: chest pain Respiratory: Denies: dyspnea Gastrointestinal: Reports: abdominal pain, nausea, vomiting. Denies: diarrhea, melena, hematochezia Genitourinary: Reports: frequency. Denies: urgency, dysuria, hematuria Musculoskeletal: Denies: back pain Integumentary: Denies: rash, abrasion Past Medical History - Past Medical History Medical history: Reports: DVT, hypertension, kidney stones, migraine, thyroid disease Surgical history: Reports: appendectomy, hysterectomy, other Psychiatric history: Reports: no psych history PARALEGAL SPECIALIST history: Reports: no PARALEGAL SPECIALIST history, bilateral tubal ligation - Social History Smoking Status: Never smoker Smokeless Tobacco Status: No Alcohol use: Reports: none Drug use: Reports: none Physical Exam - General Limitations: no limitations General appearance: alert, in no apparent distress Course Vital Signs Temperature 98.3 F 09/27/17 21:27 Pulse Rate 89 09/27/17 21:27 Respiratory Rate 20 09/27/17 21:27 Blood Pressure 152/95 09/27/17 21:27 O2 Sat by Pulse Oximetry 98 09/27/17 21:27 Temperature 98.8 F 09/30/17 07:14 Pulse Rate 77 09/30/17 07:14 Respiratory Rate 18 09/30/17 07:14 Blood Pressure 142/92 09/30/17 07:14 O2 Sat by Pulse Oximetry 98 09/30/17 08:00 Oxygen Delivery Oxygen Delivery Room Air Medical Decision Making - Lab Data Result diagrams: 09/30/17 03:40 09/29/17 06:25 Lab Results 09/27/17 09/27/17 09/27/17 Range/Units 22:57 22:57 23:45 WBC 10.1 (4.3-11.1) K/mcL RBC 4.86 (3.82-4.97) M/mcL Hgb 14.6 (11.5-15.4) g/dL Hct 43.0 (35.3-44.9) % MCV 88.5 (83.0-100.0) fL MCH 30.0 (28.0-33.3) pg MCHC 34.0 (31.6-35.5) g/dL RDW 13.6 (11.5-14.5) % Plt Count 315 (140-400) K/mcL MPV 9.1 L (9.4-12.4) fL Immature Gran % 0.2 (0-4) % Seg Neutrophils % 75.6 % Lymphocytes % 15.3 % Monocytes % 6.5 % Eosinophils % 2.1 % Basophils % 0.3 % Neutrophils # 7.6 (1.6-8.9) K/mcL Lymphocytes # 1.6 (0.6-4.6) K/mcL Monocytes # 0.7 (0.0-1.3) K/mcL Eosinophils # 0.2 (0.0-0.6) K/mcL Basophils # 0.0 (0.0-0.2) K/mcL Sodium 140 (136-145) mEq/L Potassium 3.9 (3.5-5.1) mEq/L Chloride 106 (98-107) mEq/L Carbon Dioxide 25 (23-29) mEq/L BUN 12 (6-20) mg/dL Creatinine 0.84 (0.60-1.20) mg/dL Est GFR ( Amer) > 60 (> 60) Est GFR (Non-Af Amer) > 60 (> 60) BUN/Creatinine Ratio 14 (6-26) Glucose 97 (70-105) mg/dL Calculated Osmolality 290 (280-300) Calcium 10.0 (8.6-10.3) mg/dL Lipase 7 L (11-82) Units/L Urine Color Yellow (Yellow) Urine Clarity Clear (Clear) Urine pH 5.5 (5.0-8.0) pH Units Ur Specific [place] 1.019 (1.010-1.025) Urine Protein Negative (Neg-Trace) mg/dL Urine Glucose (UA) Normal (Normal) mg/dL Urine Ketones Trace H (Negative) mg/dL Urine Blood Negative (Negative) Urine Nitrite Negative (Negative) Urine Bilirubin Negative (Negative) Urine Urobilinogen Normal (Normal) mg/dL Ur Leukocyte Esterase Small H (Negative) Urine Microscopic RBC 0-3 (0-3) per hpf Urine Microscopic WBC 5-15 H (0-3) per hpf Ur Squamous Epith Cells Many H (None-Few) per lpf Urine Bacteria None Seen (None-Few) per hpf Hyaline Casts None Seen (None-Few) per lpf Ur Culture Indicated? NO. A (NO) Urine Test (Negative) 07/25/18 Range/Units 23:45 WBC (4.3-11.1) K/mcL RBC (3.82-4.97) M/mcL Hgb (11.5-15.4) g/dL Hct (35.3-44.9) % MCV (83.0-100.0) fL MCH (28.0-33.3) pg MCHC (31.6-35.5) g/dL RDW (11.5-14.5) % Plt Count (140-400) K/mcL MPV (9.4-12.4) fL Immature Gran % (0-4) % Seg Neutrophils % % Lymphocytes % % Monocytes % % Eosinophils % % Basophils % % Neutrophils # (1.6-8.9) K/mcL Lymphocytes # (0.6-4.6) K/mcL Monocytes # (0.0-1.3) K/mcL Eosinophils # (0.0-0.6) K/mcL Basophils # (0.0-0.2) K/mcL Sodium (136-145) mEq/L Potassium (3.5-5.1) mEq/L Chloride (98-107) mEq/L Carbon Dioxide (23-29) mEq/L BUN (6-20) mg/dL Creatinine (0.60-1.20) mg/dL Est GFR ( Amer) (> 60) Est GFR (Non-Af Amer) (> 60) BUN/Creatinine Ratio (6-26) Glucose (70-105) mg/dL Calculated Osmolality (280-300) Calcium (8.6-10.3) mg/dL Lipase (11-82) Units/L Urine Color (Yellow) Urine Clarity (Clear) Urine pH (5.0-8.0) pH Units Ur Specific [place] (1.010-1.025) Urine Protein (Neg-Trace) mg/dL Urine Glucose (UA) (Normal) mg/dL Urine Ketones (Negative) mg/dL Urine Blood (Negative) Urine Nitrite (Negative) Urine Bilirubin (Negative) Urine Urobilinogen (Normal) mg/dL Ur Leukocyte Esterase (Negative) Urine Microscopic RBC (0-3) per hpf Urine Microscopic WBC (0-3) per hpf Ur Squamous Epith Cells (None-Few) per lpf Urine Bacteria (None-Few) per hpf Hyaline Casts (None-Few) per lpf Ur Culture Indicated? (NO) Urine Test Negative (Negative) Attestation Statement - Attestation Attestation: I examined this patient and my medical decision-making was reviewed with the Resident Physician. I agree with the documented findings, disposition and treatment plan as described except to the extent set forth below. Patient seems somewhat uncomfortable in the room, tells me that she has been pacing around. She has bilateral flank percussive tenderness, worse on the right than the left. Gives a very good history for urinary infection with urinary frequency and hesitancy as well as some discomfort, not a very impressive UA however. Orders reviewed, she was admitted and treated for "clinical pyelonephritis" last time she was here. I reviewed her [facility] report, she has multiple prescriptions, however, they are all on a once a month basis. She has not going to emergency departments or other providers in between her monthly prescriptions from her primary care provider. Her symptoms strongly suggest pyelonephritis, we will treat with IV antibiotics. However, the colicky nature of her pain concerns regarding the possibility of a stone, so a CT has been ordered as well.
[2017-09-28] MEDS ORDERED: *HR* FentaNYL (PF) 100 MCG/2 ML VIAL IVP ONE (02:03)
[2017-09-28] MEDS ORDERED: *HR* Promethazine 25 MG/ML VIAL IVP ONE (02:04)
[2017-09-28] MEDS ORDERED: Naloxone 0.4 MG/ML INJ IVP PRN (07:28)
[2017-09-28] MEDS: *HR* HYDROcodone/Acet 5/325 mg TABLET PO PRN ×2 (07:59→12:22)
[2017-09-28] MEDS: Ondansetron 4 MG/2 ML VIAL IVP PRN ×3 (08:00→20:20)
--- NOTE | 2017-09-28 08:23 | Internal Med History&Physical ---
Date of Encounter: 09/28/17 Time of Encounter: 07:40 Internal Medicine - H&P: HPI Chief complaint: bilateral flank/back pain History of present illness: Ms. Katz is a 46 year old female with past medical history of recurrent Escherichia coli urinary tract infection, chronic back pain, migraine headaches , presented to the ED with acute onset of bilateral back/flank pain. Sharp, nonradiating, no relieving factors, associated with urinary frequency and hesitancy. Denies fever or chills, nausea or vomiting. Denies any strenuous activity recently. No chest pain, shortness of breath, orthopnea, PND, joint pain, or rash. In the ED, she was afebrile and hemodynamically stable. Labs were unremarkable with normal BMP, lipase, and WBC. Urinalysis was positive for small amount of leukocyte esterase but no bacteria seen. CT scan did not reveal any findings of hydronephrosis, pyelonephritis, or any kidney stones. Given her episodes of recurrent pyelonephritis, she was started on IV rocephin and admitted for further management. Past Med Surg Social Fam HX - Past Medical History Attestation: Yes The following information was validated with the patient. Medical history: DVT, hypertension, kidney stones, migraine, thyroid disease Additional medical history: spinal menengitis Psychiatric history: no psych history - Past Surgical History Surgical History: appendectomy, hysterectomy, other Additional surgical history: METAL COATER shunt. tubal ligation. facial surgery d/t fractures - Social History Smoking Status: Never smoker Smokeless Tobacco Status: No Alcohol use: none Drug use: none Internal Medicine - H&P: Meds Ondansetron [Zofran ODT] 8 mg SL TID 08/06/17 [History] Albuterol Sulfate [Ventolin Hfa] 2 puff IH Q4-6H PRN 08/07/17 [History] EPINEPHrine [Epipen] 0.3 mg IM ONCE PRN 08/07/17 [History] Omeprazole [PriLOSEC] 40 mg PO DAILY 08/07/17 [History] Oxycodone HCl/Acetaminophen [Percocet 10-325 mg Tablet] 1 tab PO Q6H PRN [History] Acetaminophen [Tylenol] 650 mg PO Q6HR PRN tablet 08/08/17 [Rx] Zolpidem [Ambien] 10 mg PO HS 09/28/17 [History] 3 Allergy/AdvReac Type Severity Reaction Status Date / Time diphenhydramine Allergy Hives Verified 09/27/17 21:29 [From Benadryl] ketorolac [From Toradol] Allergy Anaphylaxis Verified 09/27/17 21:29 metoclopramide [From Reglan] Allergy Dizziness Verified 09/27/17 21:29 prochlorperazine Allergy See Verified 09/27/17 21:29 [From Compazine] Comments Sulfa (Sulfonamide Allergy Vomiting Verified 09/27/17 21:29 Antibiotics) divalproex sodium AdvReac Anxiety Verified 09/27/17 21:29 [From Depakote] haloperidol [From Haldol] AdvReac Anxiety Verified 09/27/17 21:29 ketamine AdvReac Headache Verified 09/27/17 21:29 All Systems PM: A 10-system review of systems was performed and is negative for pertinent findings except as documented above in the HPI. - Constitutional Vitals: Temp Pulse Resp BP Pulse Ox 98.4 F 69 14 136/84 100 09/28/17 07:04 09/28/17 07:04 09/28/17 07:04 09/28/17 07:04 09/28/17 07:04 Exam: General: Alert and oriented HEENT:EOM, pupils equal, round, and reactive. Cardiovascular:Normal S1 & S2, no murmurs or gallops. No JVD. Pulse regular. Lungs:Normal breath sounds, no wheezes or crackles. Abdomen:Soft, non-tender, no rigidity. questionable CVA tenderness on R Extremities: bilateral paraspinal tenderness in the lumbar region, no step deformity along lumbar spine Neurological:Normal cognition and motor skills. Skin:Normal color, no rash, no lesions. Pulses:Carotid and radial pulses normal +2. Rest of the physical exam is non-contributory Internal Med - H&P Results - Labs CBC & Chem 7: 09/27/17 22:57 09/27/17 22:57 - Assessment and plan (1) Pyelonephritis Current Visit: Yes Status: Acute Assessment and plan: She does have a significant history of recurrent Escherichia coli UTI and was recently omitted in the hospital back in August for clinical pyelonephritis. Tx with 14 day course of Omnicef Was advised to see urology but lost insurance interim and could not follow up WBC normal, UA not impressive, unclear whether she has another bouts of pyelonephritis but pt states that she feels better after IV Varinder, will continue for now given her bilateral paraspinal tenderness along with a history of chronic low back pain, will also try baclofen (2) HTN (hypertension) Current Visit: No Status: Acute Assessment and plan: not on meds, exacerbated by back/flank pain monitor Qualifiers: Hypertension type: essential hypertension Qualified Code(s): I10 - Essential (primary) hypertension (3) DVT prophylaxis Current Visit: No Status: Acute Assessment and plan: sq heparin - Time Spent With Patient Total time spent is greater than 50% in coordination of care (as documented) at patient's floor/unit and/or counseling patient:
[2017-09-28] MEDS ORDERED: *HR* EPINEPHrine 30 MG/30 ML MDV IM PRN (08:26)
[2017-09-28] MEDS ORDERED: Baclofen 10 MG TABLET PO PRN (08:26)
[2017-09-28] MEDS: *HR* OxyCODONE/APAP 10/325 TABLET PO PRN (17:00)
[2017-09-28] MEDS: *HR* Heparin 5,000 UNIT/ML VIAL SQ SCH (18:31)
[2017-09-29] MEDS: *HR* OxyCODONE/APAP 10/325 TABLET PO PRN ×4 (02:57→21:17)
[2017-09-29] MEDS: Ondansetron 4 MG/2 ML VIAL IVP PRN ×3 (02:58→14:58)
[2017-09-29] MEDS: cefTRIAXone 1,000 MG in Water for inj. (sterile) 20 ML 10 ML IVP SCH ×2 (05:12→07:27)
[2017-09-29] MEDS: *HR* Heparin 5,000 UNIT/ML VIAL SQ SCH ×2 (05:12→17:10)
[2017-09-29 07:27] LABS: Basophils % 0.3 %; Eosinophils # 0.3 K/mcL (0.0-0.6); Eosinophils % 3.2 %; Immature Granulocytes % 0.2 % (0-4); Lymphocytes # 2.2 K/mcL (0.6-4.6); Lymphocytes % 23.4 %; Mean Corpuscular HGB Conc 33.9 g/dL (31.6-35.5); Mean Corpuscular Hemoglobin 30.6 pg (28.0-33.3); Mean Corpuscular Volume 90.3 fL (83.0-100.0); Mean Platelet Volume 9.6 fL (9.4-12.4); Monocytes # 0.8 K/mcL (0.0-1.3); Monocytes % 8.8 %; Platelet Count 270 K/mcL (140-400); Red Blood Count 4.21 M/mcL (3.82-4.97); Red Cell Distribution Width 13.6 % (11.5-14.5); Segmented Neutrophils % 64.1 %
[2017-09-29 07:29] LABS: Hemoglobin 12.9 g/dL (11.5-15.4)
[2017-09-29 07:43] LABS: BUN/Creatinine Ratio 21 (6-26); Blood Urea Nitrogen 15 mg/dL (6-20); Calcium 8.9 mg/dL (8.6-10.3); Carbon Dioxide 21 mEq/L (23-29); Chloride 109 mEq/L (98-107); Glucose 98 mg/dL (70-105); Osmolality,Calculated 287 (280-300); Potassium 3.9 mEq/L (3.5-5.1); Sodium 138 mEq/L (136-145); eGFR For Non-African Americans > 60 (> 60)
--- NOTE | 2017-09-29 10:22 | Internal Med Progress Note ---
Date of Encounter: 09/29/17 Time of Encounter: 10:16 - Assessment and plan (1) Pyelonephritis Current Visit: Yes Status: Acute Assessment and plan: 09/28/17- She does have a significant history of recurrent Escherichia coli UTI and was recently omitted in the hospital back in August for clinical pyelonephritis. Tx with 14 day course of Omnicef Was advised to see urology but lost insurance interim and could not follow up WBC normal, UA not impressive, unclear whether she has another bouts of pyelonephritis but pt states that she feels better after IV Varinder, will continue for now given her bilateral paraspinal tenderness along with a history of chronic low back pain, will also try baclofen 09/29/17 -Patient states that her polyuria and dysuria is improving on antibiotics -Continue IV Rocephin today -Likely transition to by mouth Omnicef tomorrow with outpatient follow-up with urology -Continues to be afebrile without leukocytosis (2) Viral gastroenteritis Current Visit: Yes Status: Acute Assessment and plan: Patient with nausea and mild abdominal discomfort and diarrhea. -Suspect viral gastroenteritis -Continue with antiemetics and supportive care -Start IV fluids (3) HTN (hypertension) Current Visit: No Status: Acute Assessment and plan: Patient's blood pressure is controlled without medication. Qualifiers: Hypertension type: essential hypertension Qualified Code(s): I10 - Essential (primary) hypertension (4) DVT prophylaxis Current Visit: No Status: Acute Assessment and plan: sq heparin - Time Spent With Patient Total time spent is greater than 50% in coordination of care (as documented) at patient's floor/unit and/or counseling patient: 25 - 35 minutes - Subjective Interval history: Patient seen and examined at bedside. No significant overnight events. Patient states that she is experiencing some nausea and some mild abdominal discomfort and diarrhea. Patient also complains of polyuria and burning sensation prior to beginning antibiotics. She states this is improving on antibiotics. Patient denies any chest pain, shortness of breath, cough, fevers , headache or blurry vision. - Constitutional Vitals: Temp Pulse Resp BP Pulse Ox 97.9 F 68 16 119/69 96 09/29/17 07:08 09/29/17 07:08 09/29/17 07:08 09/29/17 07:08 09/29/17 07:08 Exam: Constitutional: No acute distress, Alert Psych: AAO x 3 Neck: Supple Cardio: regular rate and rhythm, +s1s2, no murmurs/rubs/ronchi, Resp: clear to ascultation bilaterally, no wheezes/rales/ronchi Abd: soft, non tender/non distended, positive bowel sounds, no gaurding/reboud/ ridgitity; benign exam Extremities: no clubbing/cyanosis/edema appreciated Neuro: no focal deficits appreciated Lymph: no cervical/supraclavicular adenopahty apprecitated Internal Medicine: Result - Labs CBC & Chem 7: 09/29/17 06:25 09/29/17 06:25 Labs: Short CBC 09/29/17 Range/Units 06:25 WBC 9.4 (4.3-11.1) K/mcL Hgb 12.9 D (11.5-15.4) g/dL Hct 38.0 (35.3-44.9) % Plt Count 270 (140-400) K/mcL Neutrophils # 6.0 (1.6-8.9) K/mcL BMP 09/29/17 06:25 Sodium 138 Potassium 3.9 Chloride 109 H Carbon Dioxide 21 L BUN 15 Creatinine 0.73 Glucose 98 Calcium 8.9 Consult Discharge Plan - Plan Referrals: Yogesh Markham MD [Primary Care Provider] - 10/10/17 3:45 pm
[2017-09-29] MEDS: *HR* Promethazine 25 MG/ML VIAL IVP PRN ×2 (10:53→20:11)
[2017-09-29] MEDS: Ringers Solution, Lactated 1,000 ML IVC SCH (10:55)
[2017-09-30] MEDS: Ringers Solution, Lactated 1,000 ML IVC SCH (01:24)
[2017-09-30] MEDS: *HR* OxyCODONE/APAP 10/325 TABLET PO PRN ×3 (03:36→15:47)
[2017-09-30] MEDS: Ondansetron 4 MG/2 ML VIAL IVP PRN ×2 (03:41→13:52)
[2017-09-30 04:09] LABS: Basophils % 0.6 %; Eosinophils # 0.4 K/mcL (0.0-0.6); Eosinophils % 4.9 %; Hematocrit 36.1 % (35.3-44.9); Immature Granulocytes % 0.1 % (0-4); Lymphocytes # 2.1 K/mcL (0.6-4.6); Lymphocytes % 29.6 %; Mean Corpuscular HGB Conc 33.2 g/dL (31.6-35.5); Mean Corpuscular Hemoglobin 29.7 pg (28.0-33.3); Mean Corpuscular Volume 89.4 fL (83.0-100.0); Mean Platelet Volume 9.5 fL (9.4-12.4); Monocytes # 0.7 K/mcL (0.0-1.3); Monocytes % 9.4 %; Neutrophils # 3.9 K/mcL (1.6-8.9); Platelet Count 226 K/mcL (140-400); Red Blood Count 4.04 M/mcL (3.82-4.97); Red Cell Distribution Width 13.5 % (11.5-14.5); Segmented Neutrophils % 55.4 %
[2017-09-30] MEDS: *HR* Heparin 5,000 UNIT/ML VIAL SQ SCH (06:14)
[2017-09-30 07:25] VITALS: BP 142/92
--- NOTE | 2017-09-30 08:29 | Discharge Summary ---
- NOTES TO OUTPATIENT PROVIDER Notes to Outpatient Provider: Patient was unable to previously follow up with urology secondary to insurance; consider repeating referral for recurrent urinary tract infections and pyelonephritis Date of Encounter: 09/30/17 Time of Encounter: 08:26 - Discharge Diagnosis (1) Pyelonephritis Priority: Primary Status: Acute Assessment and Plan: Patient was symptomatic however urinalysis did not meet indication for culture ; will treat for 3 more days for total of 5 days for urinary tract infection as opposed to pyelonephritis as there is no evidence on imaging and I believe the patient's abdominal pain was due to gastroenteritis; will treat with Keflex based on past sensitivities sensitive to cephalosporins (2) UTI (urinary tract infection) Priority: Secondary Status: Acute Assessment and Plan: See above; we will treat the patient for urinary symptoms with history of recurrent Escherichia coli UTI with pyelonephritis; will treat for 3 additional days with Keflex by mouth based on prior sensitivities Qualifiers: Urinary tract infection type: site unspecified Hematuria presence: without hematuria Qualified Code(s): N39.0 - Urinary tract infection, site not specified (3) Viral gastroenteritis Priority: Secondary Status: Acute Assessment and Plan: Nausea and abdominal pain and diarrhea are improving; and the patient can continue supportive care at home (4) HTN (hypertension) Priority: Secondary Status: Acute Assessment and Plan: Patient's blood pressure is controlled without medication. Qualifiers: Hypertension type: essential hypertension Qualified Code(s): I10 - Essential (primary) hypertension (5) DVT prophylaxis Priority: Secondary Status: Acute Assessment and Plan: sq heparin Hospital course: Ms. Katz is a 46 year old female who presented to the emergency department with chief complaint of abdominal pain. The patient was admitting to abdominal pain with dysuria; CT of the abdomen was negative for any acute process; urinalysis was not remarkable for infection however based on previous pyelonephritis history that is recurrent the patient was started on IV antibiotics. The patient began complaining of mild nausea and diarrhea, I suspect that her abdominal pain was due to a viral gastroenteritis; however will treat for 3 additional days of by mouth Keflex based on prior sensitivities due to urinary symptoms. Patient states she is agreeable to this plan. Patient is discharged in stable condition on 09/30/2017 Discharge discussed with: patient, nurse - Time Spent with Patient Total time spent providing and/or coordinating discharge services: Greater than 30 minutes - Discharge Medications Prescriptions: Promethazine [Phenergan] 25 mg PO Q8HR PRN #12 tablet PRN Reason: Nausea And Vomiting cephALEXin [Keflex] 500 mg PO BID #7 capsule Home Medications: Ondansetron [Zofran ODT] 8 mg SL TID 08/06/17 [History] Albuterol Sulfate [Ventolin Hfa] 2 puff IH Q4-6H PRN 08/07/17 [History] EPINEPHrine [Epipen] 0.3 mg IM ONCE PRN 08/07/17 [History] Omeprazole [PriLOSEC] 40 mg PO DAILY 08/07/17 [History] Oxycodone HCl/Acetaminophen [Percocet 10-325 mg Tablet] 1 tab PO Q6H PRN [History] Acetaminophen [Tylenol] 650 mg PO Q6HR PRN tablet 08/08/17 [Rx] Zolpidem [Ambien] 10 mg PO HS 09/28/17 [History] Promethazine [Phenergan] 25 mg PO Q8HR PRN #12 tablet 09/30/17 [Rx] cephALEXin [Keflex] 500 mg PO BID #7 capsule 09/30/17 [Rx] Allergies/Adverse Reactions: 3 Allergy/AdvReac Type Severity Reaction Status Date / Time diphenhydramine Allergy Hives Verified 09/27/17 21:29 [From Benadryl] ketorolac [From Toradol] Allergy Anaphylaxis Verified 09/27/17 21:29 divalproex sodium AdvReac Anxiety Verified 09/27/17 21:29 [From Depakote] haloperidol [From Haldol] AdvReac Anxiety Verified 09/27/17 21:29 ketamine AdvReac Headache Verified 09/27/17 21:29 metoclopramide [From Reglan] AdvReac Dizziness Verified 09/28/17 10:05 prochlorperazine AdvReac Dizziness Verified 09/28/17 10:05 [From Compazine] Sulfa (Sulfonamide AdvReac Vomiting Verified 09/28/17 10:05 Antibiotics) Date of admission: 09/28/17 04:31 Primary care physician: Yogesh Markham MD - Constitutional Vitals: Temp Pulse Resp BP Pulse Ox 98.8 F 77 18 142/92 97 09/30/17 07:14 09/30/17 07:14 09/30/17 07:14 09/30/17 07:14 09/30/17 07:14 Exam: Constitutional: No acute distress, Alert, membranes moist Psych: AAO x 3 HEENT: NCAT, EOMI Neck: supple, no JVD Cardio: regular rate and rhythm, +s1s2, no murmurs/rubs/ronchi, no lower extremity edema, no JVD Resp: clear to ascultation bilaterally, no wheezes/rales/ronchi Abd: soft, non tender/non distended, positive bowel sounds, no gaurding/reboud/ ridgitity Extremities: no clubbing/cyanosis/edema appreciated - Patient Status Disposition: Home, Self-Care Condition: Good Functional capacity at discharge: independent ambulation Overall status at discharge: patient is back to baseline - Discharge Instructions Follow Up With: Yogesh Markham MD [Primary Care Provider] - 10/10/17 3:45 pm - Diet and Activity Activity: as per physical therapy Diet: advance to your usual diet
[2017-09-30] MEDS: cefTRIAXone 1,000 MG in Water for inj. (sterile) 20 ML 10 ML IVP SCH (08:38)
[2017-09-30] MEDS: *HR* Promethazine 25 MG/ML VIAL IVP PRN ×2 (08:39→17:22)
== END 2017-09-30 18:20 | disposition home or self-care (01) ==
LOC: 2SOUTHHOLD 21:25 → EMEROO 21:25 → SUATTDRO 09-28 04:31 → 2SOUTHHOLD 09-28 04:59 → 3ANU 09-28 20:46
PROVIDERS: ADMIT Family Medicine; ATTEND Internal Medicine

== ENCOUNTER 2019-03-11 17:44 | Observation (INO) ==
[2019-03-11 18:44] LABS: Basophils % 0.4 %; Eosinophils # 0.2 K/mcL (0.0-0.6); Eosinophils % 2.2 %; Hematocrit 44.2 % (35.3-44.9); Immature Granulocytes % 0.4 % (0-4); Lymphocytes # 1.8 K/mcL (0.6-4.6); Lymphocytes % 18.2 %; Mean Corpuscular HGB Conc 33.9 g/dL (31.6-35.5); Mean Corpuscular Hemoglobin 29.6 pg (28.0-33.3); Mean Corpuscular Volume 87.4 fL (83.0-100.0); Mean Platelet Volume 9.6 fL (9.4-12.4); Monocytes # 0.8 K/mcL (0.0-1.3); Monocytes % 7.4 %; Neutrophils # 7.2 K/mcL (1.6-8.9); Platelet Count 386 K/mcL (140-400); Red Blood Count 5.06 M/mcL (3.82-4.97); Segmented Neutrophils % 71.4 %; White Blood Count 10.1 K/mcL (4.3-11.1)
[2019-03-11 18:58] LABS: BUN/Creatinine Ratio 24 (6-26); Blood Urea Nitrogen 16 mg/dL (6-20); Calcium 9.1 mg/dL (8.6-10.3); Carbon Dioxide 20 mEq/L (23-29); Chloride 109 mEq/L (98-107); Glucose 116 mg/dL (70-105); Osmolality,Calculated 286 (280-300); Potassium 3.5 mEq/L (3.5-5.1); Sodium 137 mEq/L (136-145); Troponin I < 0.03 ng/mL (< 0.04); eGFR For African Americans > 60 (> 60); eGFR For Non-African Americans > 60 (> 60)
[2019-03-11] MEDS ORDERED: Ondansetron ODT 4 MG TAB.RAPDIS SL ONE (21:59)
[2019-03-11] MEDS ORDERED: *HR* OxyCODONE/APAP 5/325 TABLET PO ONE (22:06)
[2019-03-11] MEDS ORDERED: Isovue-370 500 ML BOTTLE IVP ONE (23:04)
[2019-03-12] MEDS: Pantoprazole 40 MG VIAL IVP SCH ×2 (02:35→14:18)
[2019-03-12] MEDS: *HR* OxyCODONE/APAP 10/325 TABLET PO PRN ×4 (03:07→22:08)
[2019-03-12 04:26] LABS: INR 1.2; Prothrombin Time 13.5 Seconds (9.4-12.1)
[2019-03-12] MEDS: Ondansetron 4 MG/2 ML VIAL IVP PRN ×3 (04:41→18:06)
[2019-03-12 04:47] LABS: Alanine Aminotransferase 11 Units/L (7-52); Albumin 4.1 g/dL (3.5-5.7); Albumin/Globulin Ratio 1.5 (1.1-2.2); Alkaline Phosphatase 77 Units/L (34-104); Aspartate Amino Transferase 12 Units/L (13-39); BUN/Creatinine Ratio 20 (6-26); Bilirubin,Total 0.5 mg/dL (0.3-1.0); Blood Urea Nitrogen 15 mg/dL (6-20); Carbon Dioxide 23 mEq/L (23-29); Chloride 106 mEq/L (98-107); Chol/HDL Ratio 4.7 (0-4.9); Cholesterol 182 mg/dL (< 200); Globulin 2.8 g/dL (2.4-3.5); Glucose 90 mg/dL (70-105); HDL Cholesterol 39 mg/dL (40-59); LDL Cholesterol,Calculated 123 mg/dL (0-99); Osmolality,Calculated 286 (280-300); Potassium 3.7 mEq/L (3.5-5.1); Sodium 138 mEq/L (136-145); Total Protein 6.9 g/dL (6.4-8.9); Triglycerides 102 mg/dL (< 150); eGFR For African Americans > 60 (> 60); eGFR For Non-African Americans > 60 (> 60)
[2019-03-12 04:48] LABS: Troponin I < 0.03 ng/mL (< 0.04)
[2019-03-12] MEDS ORDERED: *HR* OxyCODONE Immed Rel 15 MG TABLET PO ONE (05:01)
[2019-03-12 06:45] LABS: Bilirubin,Urine Negative (Negative); Blood,Urine Trace-intact (Negative); Clarity,Urine Clear (Clear); Color,Urine Yellow (Yellow); Glucose,Urine (UA) Normal (Normal); Ketones,Urine Negative (Negative); Leukocyte Esterase,Urine Negative (Negative); Nitrite,Urine Negative (Negative); Protein,Urine Negative (Neg-Trace); Urobilinogen,Urine Normal (Normal)
[2019-03-12 06:49] LABS: Bacteria,Urine None Seen per hpf (None-Few); Hyaline Casts,Urine None Seen per lpf (None-Few); RBC,Urine 0-3 per hpf (0-3); Squamous Epithelial Cell,Urine Many per lpf (None-Few); WBC,Urine 0-3 per hpf (0-3)
[2019-03-12 07:43] LABS: Estimated Average Glucose 88 mg/dl
[2019-03-12] MEDS ORDERED: ZOLPIDEM TARTRATE 12.5 MG PO PRN (11:51)
[2019-03-12] MEDS ORDERED: Albuterol Neb 1.25 MG/3 ML VIAL IH ONE (12:00)
[2019-03-12 14:04] LABS: Hematocrit 45.4 % (35.3-44.9); Hemoglobin 15.1 g/dL (11.5-15.4)
[2019-03-12] MEDS: Budesonide/Formoterol 80/4.5 1 PUFF INH IH SCH (21:36)
[2019-03-13] MEDS: Ondansetron 4 MG/2 ML VIAL IVP PRN ×2 (01:36→11:26)
[2019-03-13 02:16] LABS: Basophils % 0.3 %; Eosinophils # 0.3 K/mcL (0.0-0.6); Eosinophils % 2.7 %; Hemoglobin 13.8 g/dL (11.5-15.4); Immature Granulocytes % 0.3 % (0-4); Lymphocytes % 20.9 %; Mean Corpuscular HGB Conc 33.7 g/dL (31.6-35.5); Mean Corpuscular Hemoglobin 29.1 pg (28.0-33.3); Mean Corpuscular Volume 86.5 fL (83.0-100.0); Mean Platelet Volume 9.5 fL (9.4-12.4); Monocytes # 0.9 K/mcL (0.0-1.3); Monocytes % 8.8 %; Neutrophils # 6.5 K/mcL (1.6-8.9); Platelet Count 341 K/mcL (140-400); Red Blood Count 4.74 M/mcL (3.82-4.97); Red Cell Distribution Width 12.8 % (11.5-14.5); White Blood Count 9.7 K/mcL (4.3-11.1)
[2019-03-13 02:36] LABS: BUN/Creatinine Ratio 15 (6-26); Blood Urea Nitrogen 16 mg/dL (6-20); Carbon Dioxide 21 mEq/L (23-29); Chloride 107 mEq/L (98-107); Glucose 102 mg/dL (70-105); Osmolality,Calculated 285 (280-300); Sodium 137 mEq/L (136-145); eGFR For African Americans > 60 (> 60); eGFR For Non-African Americans 56 (> 60)
[2019-03-13] MEDS: Pantoprazole 40 MG VIAL IVP SCH ×2 (02:59→11:25)
[2019-03-13] MEDS: *HR* OxyCODONE/APAP 10/325 TABLET PO PRN ×3 (05:08→17:04)
[2019-03-13] MEDS: Budesonide/Formoterol 80/4.5 1 PUFF INH IH SCH (08:02)
[2019-03-13] MEDS ORDERED: Gabapentin 300 MG CAPSULE PO SCH (09:00)
[2019-03-13] MEDS ORDERED: carBAMazepine 200 MG TABLET PO SCH (09:00)
[2019-03-13 10:24] VITALS: BP 121/80
== END 2019-03-13 17:34 | disposition home or self-care (01) ==
LOC: EMEROOARM 17:44 → 3ANU 17:44 → SUATTDRO 03-12 00:33 → 3ANU 03-12 00:57
PROVIDERS: ADMIT Internal Medicine; ATTEND Internal Medicine

== ENCOUNTER 2019-03-15 16:42 | Observation (INO) ==
[2019-03-15] MEDS ORDERED: 0.9 % Sodium Chloride 1,000 ML IVC ONE (17:00)
[2019-03-15 17:35] LABS: Hematocrit 40.7 % (35.3-44.9); Hemoglobin 13.8 g/dL (11.5-15.4); Mean Corpuscular HGB Conc 33.9 g/dL (31.6-35.5); Mean Corpuscular Hemoglobin 29.2 pg (28.0-33.3); Mean Corpuscular Volume 86.2 fL (83.0-100.0); Mean Platelet Volume 9.3 fL (9.4-12.4); Platelet Count 347 K/mcL (140-400); Red Blood Count 4.72 M/mcL (3.82-4.97); Red Cell Distribution Width 12.6 % (11.5-14.5); White Blood Count 10.7 K/mcL (4.3-11.1)
[2019-03-15 17:41] LABS: INR 1.1; Prothrombin Time 12.2 Seconds (9.4-12.1)
[2019-03-15 17:44] LABS: Activated Partial Thrombo Time 27.5 Seconds (26.0-36.0)
[2019-03-15 17:54] LABS: BUN/Creatinine Ratio 28 (6-26); Blood Urea Nitrogen 19 mg/dL (6-20); Calcium 9.2 mg/dL (8.6-10.3); Carbon Dioxide 22 mEq/L (23-29); Chloride 105 mEq/L (98-107); Glucose 104 mg/dL (70-105); Osmolality,Calculated 289 (280-300); Potassium 3.7 mEq/L (3.5-5.1); Sodium 138 mEq/L (136-145); Troponin I < 0.03 ng/mL (< 0.04); eGFR For African Americans > 60 (> 60); eGFR For Non-African Americans > 60 (> 60)
[2019-03-15 19:17] LABS: Amphetamine Screen,Urine Negative ng/mL (Cutoff=1000); Barbiturate Screen,Urine Negative ng/mL (Cutoff=200); Benzodiazepines Screen,Urine Negative ng/mL (Cutoff=200); Cannabinoid Screen,Urine Negative ng/mL (Cutoff = 50); Cocaine Screen,Urine Negative ng/mL (Cutoff= 300); Opiate Screen,Urine Negative ng/mL (Cutoff=300); Phencyclidine Screen,Urine Negative ng/mL (Cutoff=25)
[2019-03-15] MEDS ORDERED: Ondansetron ODT 4 MG TAB.RAPDIS SL ONE (20:01)
[2019-03-15] MEDS ORDERED: *HR* OxyCODONE/APAP 5/325 TABLET PO ONE (21:03)
[2019-03-16] MEDS: Ondansetron ODT 4 MG TAB.RAPDIS SL PRN ×3 (03:11→15:45)
[2019-03-16] MEDS: *HR* OxyCODONE/APAP 10/325 TABLET PO PRN ×3 (03:11→15:45)
[2019-03-16] MEDS ORDERED: Naloxone 0.4 MG/ML INJ IVP PRN (06:53)
[2019-03-16] MEDS ORDERED: 0.9 % Sodium Chloride 1,000 ML IVC SCH (07:00)
[2019-03-16 07:45] LABS: Hematocrit 37.4 % (35.3-44.9); Hemoglobin 12.5 g/dL (11.5-15.4); Mean Corpuscular HGB Conc 33.4 g/dL (31.6-35.5); Mean Corpuscular Hemoglobin 29.2 pg (28.0-33.3); Mean Corpuscular Volume 87.4 fL (83.0-100.0); Mean Platelet Volume 9.5 fL (9.4-12.4); Platelet Count 281 K/mcL (140-400); Red Blood Count 4.28 M/mcL (3.82-4.97); Red Cell Distribution Width 12.9 % (11.5-14.5)
[2019-03-16 08:02] LABS: BUN/Creatinine Ratio 30 (6-26); Blood Urea Nitrogen 22 mg/dL (6-20); Calcium 8.5 mg/dL (8.6-10.3); Carbon Dioxide 19 mEq/L (23-29); Chloride 110 mEq/L (98-107); Glucose 112 mg/dL (70-105); Osmolality,Calculated 288 (280-300); Potassium 3.6 mEq/L (3.5-5.1); Sodium 137 mEq/L (136-145); eGFR For African Americans > 60 (> 60); eGFR For Non-African Americans > 60 (> 60)
[2019-03-16 15:17] VITALS: BP 114/80
[2019-03-16] MEDS ORDERED: *HR* Heparin 5,000 UNIT/ML VIAL SQ SCH (18:00)
== END 2019-03-16 17:50 | disposition home or self-care (01) ==
LOC: EMEROOARM 16:42 → 2NENU 16:42
PROVIDERS: ADMIT Family Medicine; ATTEND Family Medicine

== ENCOUNTER 2019-04-02 02:38 | Observation (INO) ==
[2019-04-02 03:14] LABS: Hematocrit 38.3 % (35.3-44.9); Hemoglobin 13.3 g/dL (11.5-15.4); Mean Corpuscular HGB Conc 34.7 g/dL (31.6-35.5); Mean Corpuscular Hemoglobin 29.6 pg (28.0-33.3); Mean Corpuscular Volume 85.3 fL (83.0-100.0); Mean Platelet Volume 8.7 fL (9.4-12.4); Platelet Count 367 K/mcL (140-400); Red Blood Count 4.49 M/mcL (3.82-4.97); Red Cell Distribution Width 12.4 % (11.5-14.5)
[2019-04-02 03:22] LABS: INR 1.2; Prothrombin Time 13.3 Seconds (9.4-12.1)
[2019-04-02 03:24] LABS: Activated Partial Thrombo Time 33.9 Seconds (26.0-36.0)
[2019-04-02 03:41] LABS: BUN/Creatinine Ratio 37 (6-26); Blood Urea Nitrogen 24 mg/dL (6-20); Calcium 8.7 mg/dL (8.6-10.3); Carbon Dioxide 23 mEq/L (23-29); Chloride 105 mEq/L (98-107); Glucose 89 mg/dL (70-105); Osmolality,Calculated 294 (280-300); Potassium 3.5 mEq/L (3.5-5.1); Sodium 140 mEq/L (136-145); eGFR For African Americans > 60 (> 60); eGFR For Non-African Americans > 60 (> 60)
[2019-04-02 03:42] LABS: Troponin I < 0.03 ng/mL (< 0.04)
[2019-04-02 04:00] LABS: Bilirubin,Urine Negative (Negative); Blood,Urine Trace (Negative); Clarity,Urine Clear (Clear); Color,Urine Yellow (Yellow); Glucose,Urine (UA) Normal (Normal); Ketones,Urine Negative (Negative); Leukocyte Esterase,Urine Negative (Negative); Nitrite,Urine Negative (Negative); Protein,Urine Negative (Neg-Trace); Specific Gravity,Urine > 1.030 (1.010-1.025); Urobilinogen,Urine Normal (Normal)
[2019-04-02 04:01] LABS: Bacteria,Urine None Seen per hpf (None-Few); Hyaline Casts,Urine None Seen per lpf (None-Few); Squamous Epithelial Cell,Urine Many per lpf (None-Few); WBC,Urine 0-3 per hpf (0-3)
[2019-04-02] MEDS ORDERED: Linezolid 600 MG TABLET PO STA (04:09)
[2019-04-02] MEDS ORDERED: Aspirin 325 MG TABLET PO ONE (05:05)
[2019-04-02] MEDS ORDERED: Naloxone 0.4 MG/ML INJ IVP PRN (06:23)
[2019-04-02] MEDS ORDERED: Linezolid 600 MG TABLET PO SCH (09:00)
[2019-04-02] MEDS ORDERED: *HR* LORazepam 1 MG TABLET PO ONE (11:13)
[2019-04-02] MEDS: Ondansetron ODT 4 MG TAB.RAPDIS SL PRN ×2 (15:05→21:09)
[2019-04-02] MEDS: *HR* OxyCODONE/APAP 10/325 TABLET PO PRN ×2 (15:09→21:09)
[2019-04-02] MEDS: Albuterol 2.5 MG/3 ML NEBULIZER IH SCH ×3 (16:03→20:17)
[2019-04-02] MEDS ORDERED: Albuterol 2.5 MG/3 ML NEBULIZER IH PRN (20:32)
[2019-04-03] MEDS: *HR* OxyCODONE/APAP 10/325 TABLET PO PRN ×2 (03:46→09:05)
[2019-04-03 08:15] VITALS: BP 150/112
[2019-04-03] MEDS ORDERED: amLODIPine 5 MG TABLET PO SCH (09:00)
== END 2019-04-03 12:29 | disposition home or self-care (01) ==
LOC: EMEROOARM 02:38 → 2NENU 02:38 → SUATTDRO 04:46 → 2NENU 05:10
PROVIDERS: ADMIT Family Medicine; ATTEND Internal Medicine

== ENCOUNTER 2019-07-28 11:50 | Observation (INO) ==
[2019-07-28] MEDS ORDERED: Ondansetron 4 MG/2 ML VIAL IVP ONE (12:10)
[2019-07-28 12:31] LABS: Basophils # 0.1 K/mcL (0.0-0.2); Basophils % 0.6 %; Eosinophils # 0.3 K/mcL (0.0-0.6); Hematocrit 41.9 % (35.3-44.9); Hemoglobin 13.6 g/dL (11.5-15.4); Immature Granulocytes % 0.3 % (0-4); Lymphocytes # 1.8 K/mcL (0.6-4.6); Lymphocytes % 21.2 %; Mean Corpuscular HGB Conc 32.5 g/dL (31.6-35.5); Mean Corpuscular Hemoglobin 28.6 pg (28.0-33.3); Mean Platelet Volume 9.2 fL (9.4-12.4); Monocytes # 0.7 K/mcL (0.0-1.3); Monocytes % 8.5 %; Neutrophils # 5.7 K/mcL (1.6-8.9); Platelet Count 361 K/mcL (140-400); Red Blood Count 4.76 M/mcL (3.82-4.97); Red Cell Distribution Width 13.1 % (11.5-14.5); Segmented Neutrophils % 66.4 %; White Blood Count 8.6 K/mcL (4.3-11.1)
[2019-07-28] MEDS ORDERED: Isovue-370 500 ML BOTTLE IVP ONE (12:36)
[2019-07-28 12:50] LABS: INR 1.2; Prothrombin Time 13.2 Seconds (9.4-12.1)
[2019-07-28 12:52] LABS: Activated Partial Thrombo Time 30.7 Seconds (26.0-36.0)
[2019-07-28 12:54] LABS: Alanine Aminotransferase 9 Units/L (7-52); Albumin/Globulin Ratio 1.4 (1.1-2.2); Alkaline Phosphatase 77 Units/L (34-104); Aspartate Amino Transferase 10 Units/L (13-39); BUN/Creatinine Ratio 25 (6-26); Bilirubin,Total 0.7 mg/dL (0.3-1.0); Blood Urea Nitrogen 19 mg/dL (6-20); Calcium 9.1 mg/dL (8.6-10.3); Carbon Dioxide 22 mEq/L (23-29); Chloride 108 mEq/L (98-107); Globulin 2.8 g/dL (2.4-3.5); Glucose 93 mg/dL (70-105); Osmolality,Calculated 288 (280-300); Potassium 3.6 mEq/L (3.5-5.1); Sodium 138 mEq/L (136-145); Total Protein 6.8 g/dL (6.4-8.9); Troponin I < 0.03 ng/mL (< 0.04); eGFR For African Americans > 60 (> 60); eGFR For Non-African Americans > 60 (> 60)
[2019-07-28] MEDS ORDERED: Morphine Sulfate 2 MG/ML SYRINGE IVP ONE (13:10)
[2019-07-28 14:54] LABS: Bilirubin,Urine Negative (Negative); Blood,Urine Negative (Negative); Clarity,Urine Clear (Clear); Color,Urine Yellow (Yellow); Glucose,Urine (UA) Normal (Normal); Ketones,Urine Negative (Negative); Leukocyte Esterase,Urine Negative (Negative); Nitrite,Urine Negative (Negative); Protein,Urine Negative (Neg-Trace); Specific Gravity,Urine > 1.030 (1.010-1.025); Urobilinogen,Urine Normal (Normal)
[2019-07-28] MEDS ORDERED: Naloxone 0.4 MG/ML INJ IVP PRN (16:01)
[2019-07-28] MEDS ORDERED: Ondansetron 4 MG/2 ML VIAL IVP PRN (16:01)
[2019-07-28] MEDS ORDERED: cefTRIAXone 1,000 MG in Water for inj. (sterile) 10 ML IVP SCH (17:00)
[2019-07-28] MEDS ORDERED: *HR* OxyCODONE/APAP 10/325 TABLET PO PRN (17:38)
[2019-07-28] MEDS ORDERED: *HR* LORazepam 2 MG/ML VIAL IVP PRN (18:25)
[2019-07-28] MEDS ORDERED: Albuterol 2.5 MG/3 ML NEBULIZER IH PRN (19:10)
[2019-07-28 19:22] VITALS: BP 136/94
[2019-07-28] MEDS ORDERED: *HR* Heparin 5,000 UNIT/ML VIAL SQ SCH (22:00)
[2019-07-29] MEDS ORDERED: amLODIPine 5 MG TABLET PO SCH (09:00)
[2019-07-29] MEDS ORDERED: Aspirin 81 MG TAB.CHEW PO SCH (09:00)
== END 2019-07-28 20:15 | disposition left against medical advice (07) ==
LOC: EMEROOARM 11:50 → 3BNU 11:50
PROVIDERS: ADMIT Internal Medicine; ATTEND Internal Medicine

== ENCOUNTER 2019-08-03 22:42 | Observation (INO) ==
[2019-08-03] MEDS ORDERED: Isovue-370 500 ML BOTTLE IVP ONE (22:50)
[2019-08-03] MEDS ORDERED: 0.9 % Sodium Chloride 1,000 ML IVC ONE (22:50)
[2019-08-03 23:14] LABS: Hematocrit 40.5 % (35.3-44.9); Hemoglobin 13.3 g/dL (11.5-15.4); Mean Corpuscular HGB Conc 32.8 g/dL (31.6-35.5); Mean Corpuscular Hemoglobin 28.8 pg (28.0-33.3); Mean Corpuscular Volume 87.7 fL (83.0-100.0); Mean Platelet Volume 9.1 fL (9.4-12.4); Platelet Count 354 K/mcL (140-400); Red Blood Count 4.62 M/mcL (3.82-4.97); White Blood Count 9.9 K/mcL (4.3-11.1)
[2019-08-03 23:22] LABS: INR 1.1; Prothrombin Time 12.6 Seconds (9.4-12.1)
[2019-08-03 23:25] LABS: Activated Partial Thrombo Time 31.7 Seconds (26.0-36.0)
[2019-08-03 23:38] LABS: BUN/Creatinine Ratio 22 (6-26); Blood Urea Nitrogen 15 mg/dL (6-20); Calcium 8.8 mg/dL (8.6-10.3); Carbon Dioxide 20 mEq/L (23-29); Chloride 109 mEq/L (98-107); Creatine Kinase 24 Units/L (30-223); Ethanol < 10 mg/dL (Less than 10); Glucose 98 mg/dL (70-105); Osmolality,Calculated 285 (280-300); Potassium 3.9 mEq/L (3.5-5.1); Sodium 137 mEq/L (136-145); Troponin I < 0.03 ng/mL (< 0.04); eGFR For African Americans > 60 (> 60); eGFR For Non-African Americans > 60 (> 60)
[2019-08-04 00:38] LABS: Bilirubin,Urine Negative (Negative); Blood,Urine Negative (Negative); Clarity,Urine Clear (Clear); Color,Urine Yellow (Yellow); Glucose,Urine (UA) Normal (Normal); Ketones,Urine Negative (Negative); Leukocyte Esterase,Urine Negative (Negative); Nitrite,Urine Negative (Negative); Protein,Urine Negative (Neg-Trace); Specific Gravity,Urine > 1.030 (1.010-1.025); Urobilinogen,Urine Normal (Normal)
[2019-08-04] MEDS ORDERED: Naloxone 0.4 MG/ML INJ IVP PRN (02:39)
[2019-08-04] MEDS ORDERED: Acetaminophen 325 MG TABLET PO PRN (02:41)
[2019-08-04] MEDS: Ondansetron 4 MG/2 ML VIAL IVP PRN ×2 (02:56→15:22)
[2019-08-04] MEDS: *HR* OxyCODONE/APAP 10/325 TABLET PO PRN ×4 (03:16→21:27)
[2019-08-04 04:05] LABS: Hematocrit 39.8 % (35.3-44.9); Hemoglobin 12.9 g/dL (11.5-15.4); Mean Corpuscular HGB Conc 32.4 g/dL (31.6-35.5); Mean Corpuscular Hemoglobin 28.5 pg (28.0-33.3); Mean Corpuscular Volume 87.9 fL (83.0-100.0); Mean Platelet Volume 10.1 fL (9.4-12.4); Platelet Count 316 K/mcL (140-400); Red Blood Count 4.53 M/mcL (3.82-4.97); Red Cell Distribution Width 12.9 % (11.5-14.5); White Blood Count 9.9 K/mcL (4.3-11.1)
[2019-08-04] MEDS ORDERED: 0.9 % Sodium Chloride 1,000 ML IVC ONE (04:15)
[2019-08-04 04:19] LABS: BUN/Creatinine Ratio 23 (6-26); Blood Urea Nitrogen 14 mg/dL (6-20); Calcium 8.2 mg/dL (8.6-10.3); Carbon Dioxide 18 mEq/L (23-29); Chloride 111 mEq/L (98-107); Glucose 87 mg/dL (70-105); Magnesium 2.1 mg/dL (1.6-2.6); Osmolality,Calculated 286 (280-300); Potassium 4.6 mEq/L (3.5-5.1); Sodium 138 mEq/L (136-145); eGFR For African Americans > 60 (> 60); eGFR For Non-African Americans > 60 (> 60)
[2019-08-04] MEDS: Pantoprazole 40 MG VIAL IVP SCH ×2 (05:31→17:26)
[2019-08-04] MEDS ORDERED: Triamcinolone Acet 0.1% CRM 15 GM TUBE TP PRN (13:42)
[2019-08-05] MEDS: *HR* OxyCODONE/APAP 10/325 TABLET PO PRN ×2 (03:40→09:05)
[2019-08-05] MEDS: Pantoprazole 40 MG VIAL IVP SCH (06:12)
[2019-08-05] MEDS ORDERED: amLODIPine 5 MG TABLET PO SCH (09:00)
[2019-08-05] MEDS ORDERED: Multivit/Ca/Min/Fe/FA 1 TAB TABLET PO SCH (09:00)
[2019-08-05] MEDS ORDERED: Budesonide/Formoterol 80/4.5 1 PUFF INH IH SCH (10:00)
[2019-08-05 11:04] VITALS: BP 118/89
== END 2019-08-05 12:52 | disposition home or self-care (01) ==
LOC: EMEROOARM 22:42 → 3BNU 22:42 → SUATTDRO 08-04 00:58 → 3BNU 08-04 01:32
PROVIDERS: ADMIT Family Medicine; ATTEND Internal Medicine

== ENCOUNTER 2019-10-27 22:12 | Observation (INO) ==
[2019-10-27] MEDS ORDERED: Isovue-370 500 ML BOTTLE IVP ONE (22:25)
[2019-10-27 22:54] LABS: Hematocrit 39.9 % (35.3-44.9); Hemoglobin 13.1 g/dL (11.5-15.4); Mean Corpuscular HGB Conc 32.8 g/dL (31.6-35.5); Mean Corpuscular Hemoglobin 28.7 pg (28.0-33.3); Mean Corpuscular Volume 87.5 fL (83.0-100.0); Mean Platelet Volume 8.9 fL (9.4-12.4); Platelet Count 381 K/mcL (140-400); Red Blood Count 4.56 M/mcL (3.82-4.97); Red Cell Distribution Width 13.1 % (11.5-14.5); White Blood Count 7.7 K/mcL (4.3-11.1)
[2019-10-27 23:01] LABS: INR 1.2; Prothrombin Time 13.1 Seconds (9.4-12.1)
[2019-10-27 23:03] LABS: Activated Partial Thrombo Time 30.9 Seconds (26.0-36.0)
[2019-10-27 23:12] LABS: BUN/Creatinine Ratio 12 (6-26); Blood Urea Nitrogen 9 mg/dL (6-20); Calcium 8.7 mg/dL (8.6-10.3); Carbon Dioxide 22 mEq/L (23-29); Chloride 111 mEq/L (98-107); Creatine Kinase 26 Units/L (30-223); Ethanol < 10 mg/dL (Less than 10); Glucose 99 mg/dL (70-105); Osmolality,Calculated 289 (280-300); Potassium 3.9 mEq/L (3.5-5.1); Sodium 140 mEq/L (136-145); eGFR For African Americans > 60 (> 60); eGFR For Non-African Americans > 60 (> 60)
[2019-10-27 23:14] LABS: Troponin I < 0.03 ng/mL (< 0.04)
[2019-10-27] MEDS ORDERED: Aspirin 81 MG TAB.CHEW PO ONE (23:14)
[2019-10-27 23:28] LABS: Thyroid Stimulating Hormone 0.689 mcIU/mL (0.340-5.600)
[2019-10-27] MEDS ORDERED: Ondansetron 4 MG/2 ML VIAL IVP ONE (23:30)
[2019-10-27 23:31] LABS: Bilirubin,Urine Negative (Negative); Blood,Urine Negative (Negative); Clarity,Urine Clear (Clear); Color,Urine Colorless (Yellow); Glucose,Urine (UA) Normal (Normal); Ketones,Urine Negative (Negative); Leukocyte Esterase,Urine Negative (Negative); Nitrite,Urine Negative (Negative); Protein,Urine Negative (Neg-Trace); Specific Gravity,Urine > 1.030 (1.010-1.025); Urobilinogen,Urine Normal (Normal)
[2019-10-27] MEDS ORDERED: Acetaminophen 325 MG TABLET PO ONE (23:31)
[2019-10-27 23:42] LABS: Amphetamine Screen,Urine Negative ng/mL (Cutoff=1000); Barbiturate Screen,Urine Negative ng/mL (Cutoff=200); Benzodiazepines Screen,Urine Negative ng/mL (Cutoff=200); Cannabinoid Screen,Urine Negative ng/mL (Cutoff = 50); Cocaine Screen,Urine Negative ng/mL (Cutoff= 300); Opiate Screen,Urine Negative ng/mL (Cutoff=300); Phencyclidine Screen,Urine Negative ng/mL (Cutoff=25)
[2019-10-28] MEDS ORDERED: Naloxone 0.4 MG/ML INJ IVP PRN (01:06)
[2019-10-28] MEDS ORDERED: Acetaminophen 325 MG TABLET PO PRN (01:06)
[2019-10-28] MEDS ORDERED: Ondansetron 4 MG/2 ML VIAL IVP PRN (01:06)
[2019-10-28] MEDS ORDERED: Ondansetron ODT 4 MG TAB.RAPDIS SL PRN (02:49)
[2019-10-28] MEDS ORDERED: Triamcinolone Acet 0.1% CRM 15 GM TUBE TP PRN (02:49)
[2019-10-28] MEDS ORDERED: Albuterol 2.5 MG/3 ML NEBULIZER IH PRN (02:49)
[2019-10-28] MEDS: Budesonide/Formoterol 160/4.5 1 PUFF INH IH SCH ×3 (03:21→19:51)
[2019-10-28] MEDS: *HR* OxyCODONE/APAP 10/325 TABLET PO PRN ×4 (03:29→22:08)
[2019-10-28 04:26] LABS: Basophils # 0.1 K/mcL (0.0-0.2); Basophils % 0.5 %; Eosinophils # 0.1 K/mcL (0.0-0.6); Eosinophils % 0.5 %; Hematocrit 41.4 % (35.3-44.9); Hemoglobin 13.5 g/dL (11.5-15.4); Immature Granulocytes % 0.3 % (0-4); Lymphocytes # 1.5 K/mcL (0.6-4.6); Lymphocytes % 15.1 %; Mean Corpuscular HGB Conc 32.6 g/dL (31.6-35.5); Mean Corpuscular Hemoglobin 29.5 pg (28.0-33.3); Mean Corpuscular Volume 90.4 fL (83.0-100.0); Mean Platelet Volume 9.4 fL (9.4-12.4); Monocytes # 0.4 K/mcL (0.0-1.3); Monocytes % 4.4 %; Neutrophils # 7.9 K/mcL (1.6-8.9); Platelet Count 385 K/mcL (140-400); Red Blood Count 4.58 M/mcL (3.82-4.97); Red Cell Distribution Width 13.1 % (11.5-14.5); Segmented Neutrophils % 79.2 %; White Blood Count 9.9 K/mcL (4.3-11.1)
[2019-10-28 04:27] LABS: INR 1.2; Prothrombin Time 13.4 Seconds (9.4-12.1)
[2019-10-28 04:43] LABS: Alanine Aminotransferase 27 Units/L (7-52); Albumin 4.2 g/dL (3.5-5.7); Albumin/Globulin Ratio 1.8 (1.1-2.2); Alkaline Phosphatase 76 Units/L (34-104); Aspartate Amino Transferase 20 Units/L (13-39); BUN/Creatinine Ratio 14 (6-26); Bilirubin,Total 0.4 mg/dL (0.3-1.0); Blood Urea Nitrogen 10 mg/dL (6-20); Calcium 9.2 mg/dL (8.6-10.3); Carbon Dioxide 19 mEq/L (23-29); Chloride 111 mEq/L (98-107); Globulin 2.4 g/dL (2.4-3.5); Glucose 183 mg/dL (70-105); Magnesium 2.2 mg/dL (1.6-2.6); Osmolality,Calculated 292 (280-300); Phosphorous 2.2 mg/dL (2.7-4.5); Potassium 3.4 mEq/L (3.5-5.1); Sodium 139 mEq/L (136-145); Total Protein 6.6 g/dL (6.4-8.9); eGFR For African Americans > 60 (> 60); eGFR For Non-African Americans > 60 (> 60)
[2019-10-28] MEDS: amLODIPine 5 MG TABLET PO SCH (08:54)
[2019-10-28] MEDS ORDERED: Sodium Bicarbonate 75 MEQ in 0.45 % Sodium Chloride 1,000 ML IVC SCH (09:00)
[2019-10-28] MEDS: Potassium Chloride Elixir 20 MEQ/15 ML UDC PO SCH (11:01)
[2019-10-29] MEDS: *HR* OxyCODONE/APAP 10/325 TABLET PO PRN ×2 (04:17→10:21)
[2019-10-29 07:12] VITALS: BP 119/76
[2019-10-29] MEDS: Budesonide/Formoterol 160/4.5 1 PUFF INH IH SCH (08:25)
[2019-10-29] MEDS: Potassium Chloride Elixir 20 MEQ/15 ML UDC PO SCH (08:47)
[2019-10-29] MEDS: amLODIPine 5 MG TABLET PO SCH (08:47)
[2019-10-29 09:45] LABS: BUN/Creatinine Ratio 16 (6-26); Blood Urea Nitrogen 11 mg/dL (6-20); Calcium 9.2 mg/dL (8.6-10.3); Carbon Dioxide 26 mEq/L (23-29); Chloride 106 mEq/L (98-107); Glucose 86 mg/dL (70-105); Magnesium 1.9 mg/dL (1.6-2.6); Osmolality,Calculated 283 (280-300); Phosphorous 3.6 mg/dL (2.7-4.5); Potassium 3.6 mEq/L (3.5-5.1); Sodium 137 mEq/L (136-145); eGFR For African Americans > 60 (> 60); eGFR For Non-African Americans > 60 (> 60)
== END 2019-10-29 11:50 | disposition home or self-care (01) ==
LOC: EMEROOARM 22:12 → 3BNU 22:12 → SUATTDRO 10-28 01:00 → 3BNU 10-28 02:06
PROVIDERS: ADMIT Student in an Organized Health Care Education/Training Program; ATTEND Internal Medicine